=== PATIENT | female | born 1995 | race American Indian/Alaskan Native ===

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

== ENCOUNTER 2017-03-17 18:32 | Emergency (ER) | payer MEDICAID ==
[2017-03-17 18:32] VITALS: BMI 28.8
[2017-03-17 18:47] VITALS: TEMP 98.3; O2SAT 100
--- NOTE | 2017-03-17 20:38 | ED PDOC ---
Arrival/HPI <Jj Pathak - Last Filed: 03/17/17 22:03> - General Historian: Patient, EMS <Gerhard Jeffrey - Last Filed: 03/19/17 09:41> - General Chief Complaint: Respiratory Distress Time Seen by Provider: 03/17/17 19:16 - History of Present Illness Narrative History of Present Illness (Text): 03/17/17 20:36 21 year old female, pmh including asthma, complaining of chest pain and tightness started yesterday mornin. Pt. stated that she has anterior chest pain , mild coughing with difficulty getting the air out, no fever or chills, non- radiating, no night sweat, no dizziness, no numbness or tingling, no other medical or psychological complaints. (Gerhard Jeffrey) Past Medical History - Provider Review Nursing Documentation Reviewed: Yes - Cardiac Hx Cardiac Disorders: No - Pulmonary Hx Respiratory Disorders: Yes Hx Asthma: Yes - Neurological Hx Neurological Disorder: No - HEENT Hx HEENT Disorder: No - Renal Hx Renal Disorder: No - Endocrine/Metabolic Hx Endocrine Disorders: No - Hematological/Oncological Hx Blood Disorders: No - Integumentary Hx Dermatological Disorder: No - Musculoskeletal/Rheumatological Hx Musculoskeletal Disorders: Yes Hx Falls: Yes - Gastrointestinal Hx Gastrointestinal Disorders: No - Genitourinary/Gynecological Hx Genitourinary Disorders: Yes Other/Comment: OVARIAN CYSTS - Psychiatric Hx Psychophysiologic Disorder: No Hx Substance Use: No <Gerhard Jeffrey - Last Filed: 03/19/17 09:41> Family/Social History - Physician Review Nursing Documentation Reviewed: Yes Family/Social History: Unknown Family HX Smoking Status: Never Smoked Hx Alcohol Use: No Hx Substance Use: No <Gerhard Jeffrey - Last Filed: 03/19/17 09:41> Allergies/Home Meds <Jj Pathak - Last Filed: 03/17/17 22:03> <Gerhard Jeffrey - Last Filed: 03/19/17 09:41> Allergies/Adverse Reactions: Allergies shrimp Allergy (Verified 03/17/17 18:41) ANAPHYLAXIS Home Medications: Home Meds Medication Instructions Recorded Confirmed Albuterol HFA [Ventolin HFA 90 2 puff NEB Q4 PRN 03/17/17 03/17/17 mcg/actuation (8 g)] Review of Systems - Review of Systems Constitutional: absent: Fatigue, Fevers Eyes: absent: Vision Changes ENT: absent: Hearing Changes Respiratory: absent: SOB, Cough Cardiovascular: Chest Pain Gastrointestinal: absent: Abdominal Pain, Diarrhea, Nausea, Vomiting Skin: absent: Rash, Pruritis Neurological: absent: Headache, Dizziness <Gerhard Jeffrey - Last Filed: 03/19/17 09:41> Physical Exam Vital Signs Reviewed: Yes Temperature: Afebrile Blood Pressure: Normal Pulse: Regular Respiratory Rate: Normal Appearance: Positive for: Well-Appearing, Non-Toxic, Comfortable Pain Distress: Mild Mental Status: Positive for: Alert and Oriented X 3 - Systems Exam Head: Present: Atraumatic, Normocephalic Pupils: Present: PERRL Extroacular Muscles: Present: EOMI Conjunctiva: Present: Normal Mouth: Present: Moist Mucous Membranes Neck: Present: Normal Range of Motion Respiratory/Chest: Present: Clear to Auscultation, Good Air Exchange. No: Respiratory Distress, Accessory Muscle Use, Wheezes, Decreased Breath Sounds, Rales, Retracting, Rhonchi, Tachypneic, Tender to Palpation Cardiovascular: Present: Regular Rate and Rhythm, Normal S1, S2, Other (no pedal edema). No: Murmurs Abdomen: Present: Normal Bowel Sounds. No: Tenderness, Distention, Peritoneal Signs Back: Present: Normal Inspection Upper Extremity: Present: Normal Inspection. No: Cyanosis, Edema Lower Extremity: Present: Normal Inspection. No: Edema Neurological: Present: GCS=15, CN II-XII Intact, Speech Normal Skin: Present: Warm, Dry, Normal Color. No: Rashes Psychiatric: Present: Alert, Oriented x 3, Normal Insight, Normal Concentration <Gerhard Jeffrey - Last Filed: 03/19/17 09:41> Vital Signs Temp Pulse Resp BP Pulse Ox 03/17/17 23:12 93 H 18 112/75 100 03/17/17 21:00 17 03/17/17 18:42 98.3 F 89 17 104/73 100 Medical Decision Making <Jj Pathak - Last Filed: 03/17/17 22:03> - Lab Interpretations I have reviewed the lab results: Yes Interpretation: No clinic. lab abnormalty - RAD Interpretation Furnace Operator And Tender: Radiologist - EKG Interpretation Type: 12 lead EKG <Gerhard Jeffrey - Last Filed: 03/19/17 09:41> ED Course and Treatment: 03/17/17 20:38 -labs -ekg -cxr -toradol IM/pepcid -observe and reassess 03/17/17 22:40 -Urine hcg negative -EKG: NSR @ 70 BPM, no ST elevation or depression, no T wave inversion. -Chest xray: no active disease -Labs are non-significant -Cardiac troponin negative -D Dimer negative -Pt. stated that she feels asthma exacerbation cough which the bilateral lung is clear to auscultate, dunoeb and prednisone ordered. -Pt. request to be excuse from the work today as well. -Discharge home with prednisone, albuterol, motrin, stay hydrated, follow up with your own pmd and ripening room operator within 2 days, return to the ER for any new or worsening signs or symptoms. (Gerhard Jeffrey) - Lab Interpretations Lab Results: 03/17/17 21:00 03/17/17 21:00 Lab Results 03/17/17 23:10: Urine Color Yellow, Urine Appearance Sl cloudy, Urine pH 6.0, Ur Specific [place] >= 1.030, Urine Protein Trace H, Urine Glucose (UA) Negative , Urine Ketones Trace H, Urine Blood Negative, Urine Nitrate Negative, Urine Bilirubin Negative, Urine Urobilinogen 0.2, Ur Leukocyte Esterase Small H, Urine RBC 0 - 2, Urine WBC 5 - 10, Ur Epithelial Cells 3 - 4, Urine Bacteria Mod 03/17/17 21:00: WBC 5.5, RBC 4.71, Hgb 12.6, Hct 39.4, MCV 83.7, MCH 26.8, MCHC 32.0, RDW 13.8, Plt Count 293, MPV 10.0, Gran % 61.0, Lymph % (Auto) 32.8, Mason % (Auto) 5.1, Eos % (Auto) 0.9 L, Baso % (Auto) 0.2, Gran # 3.35, Lymph # 1.8, Mason # 0.3, Eos # 0.1, Baso # 0.01 03/17/17 21:00: Sodium 144, Potassium 3.7, Chloride 107, Carbon Dioxide 25, Anion Gap 16, BUN 15, Creatinine 0.8, Est GFR ( Amer) > 60, Est GFR (Non- Af Amer) > 60, Random Glucose 106, Calcium 9.4, Total Bilirubin 0.3, AST 27, ALT 41, Alkaline Phosphatase 57, Lactate Dehydrogenase 465, Total Creatine Kinase 99, Troponin I < 0.01, Total Protein 7.5, Albumin 4.2, Globulin 3.3, Albumin/Globulin Ratio 1.3 03/17/17 21:00: D-Dimer, Quantitative 0.21 - RAD Interpretation Radiology Orders: 03/17/17 20:29 CHEST PORTABLE [RAD] Stat no active disease (Gerhard Jeffrey) - EKG Interpretation EKG Interpretation (Text): 03/17/17 22:07 NSR @ 70 BPM, no ST elevation or depression, no T wave inversion. (Gerhard Jeffrey) - Medication Orders Current Medication Orders: Discontinued Medications Albuterol/Ipratropium (Duoneb 3 Mg/0.5 Mg (3 Ml) Ud) 3 ml IH STAT STA Stop: 03/17/17 22:40 Last Admin: 03/17/17 22:55 Dose: 3 ml Prednisone (Prednisone Tab) 40 mg PO STAT STA Stop: 03/17/17 22:41 Last Admin: 03/17/17 22:55 Dose: 40 mg - PA / NATIONAL SALES CONSULTANT / Resident Statement TALIA has reviewed & agrees with the documentation as recorded. <Jj Pathak - Last Filed: 03/17/17 22:03> - PA / NATIONAL SALES CONSULTANT / Resident Statement TALIA has reviewed & agrees with the documentation as recorded. TALIA has examined the patient and agrees with the treatment plan. <Gerhard Jeffrey - Last Filed: 03/19/17 09:41> Disposition/Present on Arrival <Jj Pathak - Last Filed: 03/17/17 22:03> - Present on Arrival Any Indicators Present on Arrival: No History of DVT/PE: No History of Uncontrolled Diabetes: No Urinary Catheter: No History of Decub. Ulcer: No History Surgical Site Infection Following: None - Disposition Have Diagnosis and Disposition been Completed?: Yes Disposition Time: 22:43 Patient Plan: Discharge <Gerhard Jeffrey - Last Filed: 03/19/17 09:41> - Disposition Diagnosis: Chronic asthma with status asthmaticus Disposition: HOME/ ROUTINE Condition: GOOD Additional Instructions: -Discharge home with prednisone, albuterol, motrin, stay hydrated, follow up with your own pmd and ripening room operator within 2 days, return to the ER for any new or worsening signs or symptoms. Prescriptions: Albuterol HFA [Ventolin HFA 90 mcg/actuation (8 g)] 2 puff IH [id number] PRN #1 unit PRN Reason: Other Ibuprofen [Motrin Tab] 600 mg PO QID PRN #24 tab PRN Reason: Other predniSONE [Prednisone] 2 tab PO DAILY #8 tab Referrals: Don Flaherty MD [Primary Care Provider] - Follow up with primary Forms: [facility] (German), WORK NOTE
[2017-03-17 21:28] LABS: ALB/GLOB RATIO 1.3 (1.1-1.8); ALKALINE PHOSPHATASE 57 U/L (38-126); ALT/SGPT 41 U/L (7-56); AST/SGOT 27 U/L (14-36); BASO # 0.01 K/mm3 (0.0-2.0); BASO % 0.2 % (0.0-3.0); BILIRUBIN,TOTAL 0.3 mg/dL (0.2-1.3); BLOOD UREA NITROGEN 15 mg/dL (7-21); CALCIUM 9.4 mg/dL (8.4-10.5); CARBON DIOXIDE 25 mmol/L (21-33); CHLORIDE 107 mmol/L (98-107); EOS # 0.1 (0.0-0.7); EOS % 0.9 % (1.5-5.0); GFR AFRICAN-AMERICAN > 60; GLUCOSE,RANDOM 106 mg/dL (70-110); GRAN # 3.35 (1.4-6.5); HEMATOCRIT 39.4 % (36.0-48.0); LYMPH # 1.8 (1.2-3.4); LYMPH % 32.8 % (22.0-35.0); MEAN CELL VOLUME 83.7 fl (80.0-105.0); MEAN CORPUSCULAR HEMOGLOBIN 26.8 pg (25.0-35.0); MONO # 0.3 (0.1-0.6); MONO % 5.1 % (1.0-6.0); POTASSIUM 3.7 mmol/L (3.6-5.0); RED CELL DISTRIBUTION WIDTH 13.8 % (11.5-14.5); SODIUM 144 mmol/L (132-148); TOTAL PROTEIN 7.5 g/dL (5.8-8.3); WHITE BLOOD COUNT 5.5 10^3/ul (4.5-11.0)
[2017-03-17 21:49] LABS: TROPONIN I < 0.01 ng/mL
[2017-03-17] MEDS ORDERED: Albuterol-Ipratrop 3 mg / 0.5 (3 ml) UD IH STA (22:39)
[2017-03-17 23:13] VITALS: BP 112/75; PULSE 93; RESP 18
[2017-03-17 23:18] LABS: URINE BILIRUBIN NEGATIVE (NEGATIVE); URINE BLOOD NEGATIVE (NEGATIVE); URINE GLUCOSE (UA) NEGATIVE (NEGATIVE); URINE KETONE TRACE mg/dL (NEGATIVE); URINE LEUKOCYTE ESTERASE SMALL Leu/uL (NEGATIVE); URINE PROTEIN TRACE mg/dL (<30 mg/dL); URINE UROBILINOGEN 0.2 E.U./dL (<1 E.U./dL)
[2017-03-17 23:20] LABS: URINE COLOR YELLOW (YELLOW)
[2017-03-17 23:21] LABS: URINE APPEARANCE SL CLOUDY (CLEAR)
[2017-03-17 23:28] LABS: URINE RBC 0 - 2 /hpf (0-2)
[2017-03-17 23:29] LABS: URINE BACTERIA MOD (NEG)
--- NOTE | 2017-03-18 10:18 | RAD ---
HISTORY: medical clearance . Technique: Single view portable semi erect @ 22:00 COMPARISON: 08/08/2016 FINDINGS: LUNGS: No active pulmonary disease. PLEURA: No significant pleural effusion identified, no pneumothorax apparent. CARDIOVASCULAR: Normal. OSSEOUS STRUCTURES: No significant abnormalities. VISUALIZED UPPER ABDOMEN: Normal. OTHER FINDINGS: None. IMPRESSION: No active disease. No significant interval change compared to the prior examination(s). Please note: No preliminary report/ innterpretation of this examination provided by emergency department personnel.
--- NOTE | 2017-03-18 23:06 | CARD ---
APPROVED REPORT EKG Measurement Heart [id number] [id number] [id number] <Conclusion> Normal sinus rhythm Normal ECG
== END 2017-03-17 23:11 | disposition home or self-care (01) ==
LOC: ED 18:32
DX: J45.902 Unspecified asthma with status asthmaticus (principal)

== ENCOUNTER 2017-05-02 17:54 | Emergency (ER) | payer MEDICAID ==
[2017-05-02 17:59] VITALS: BMI 29.7
[2017-05-02 18:00] VITALS: TEMP 97.8
[2017-05-02] MEDS ORDERED: Albuterol-Ipratrop 3 mg / 0.5 (3 ml) UD IH STA (18:11)
[2017-05-02] MEDS ORDERED: Promethazine/Cod 6.25mg-10mg/5ml Syr UD PO STA (18:12)
--- NOTE | 2017-05-02 18:14 | ED PDOC ---
Arrival/HPI - General Chief Complaint: Shortness Of Breath Time Seen by Provider: 05/02/17 17:59 Historian: Patient - History of Present Illness Narrative History of Present Illness (Text): 05/02/17 18:13 This 21 yo female with pmh asthma, presents to this ED c/o cough x 2 days. Patient notes a mild SOB, and fever. Patient admits similar symptoms in the past and treated with Prednisone. Patient denies cp, hemoptysis, palpitation, abdominal pain, rash, leg swelling, calf pain, recent trauma, recent travel, recent surgery, BCP use, or abnormal gait. PERC negative for PE Time/Duration: Other (see hpi) Context: Home Past Medical History - Provider Review Nursing Documentation Reviewed: Yes - Cardiac Hx Cardiac Disorders: No - Pulmonary Hx Respiratory Disorders: Yes Hx Asthma: Yes - Neurological Hx Neurological Disorder: No - HEENT Hx HEENT Disorder: No - Renal Hx Renal Disorder: No - Endocrine/Metabolic Hx Endocrine Disorders: No - Hematological/Oncological Hx Blood Disorders: No - Integumentary Hx Dermatological Disorder: No - Musculoskeletal/Rheumatological Hx Musculoskeletal Disorders: Yes Hx Falls: Yes - Gastrointestinal Hx Gastrointestinal Disorders: No - Genitourinary/Gynecological Hx Genitourinary Disorders: Yes Other/Comment: OVARIAN CYSTS - Psychiatric Hx Psychophysiologic Disorder: No Hx Substance Use: No Family/Social History - Physician Review Nursing Documentation Reviewed: Yes Family/Social History: Other (noncontributory) Smoking Status: Never Smoked Hx Alcohol Use: No Hx Substance Use: No Allergies/Home Meds Allergies/Adverse Reactions: Allergies shrimp Allergy (Verified 05/02/17 17:59) ANAPHYLAXIS Review of Systems - Review of Systems Constitutional: Normal. absent: Fatigue, Weight Change, Fevers Eyes: Normal ENT: Normal Respiratory: SOB, Cough. absent: Sputum, Wheezing Cardiovascular: Normal Gastrointestinal: Normal Genitourinary Female: Normal Musculoskeletal: Normal Skin: Normal Neurological: Normal Endocrine: Normal Hemo/Lymphatic: Normal Psychiatric: Normal Physical Exam Vital Signs Temp Pulse Resp BP Pulse Ox 05/02/17 20:34 85 18 102/60 100 05/02/17 19:41 77 19 98/53 L 100 05/02/17 18:00 97.8 F 98 H 18 130/68 99 Temperature: Afebrile Blood Pressure: Normal Pulse: Regular Respiratory Rate: Normal Appearance: Positive for: Well-Appearing, Non-Toxic, Comfortable Pain Distress: None Mental Status: Positive for: Alert and Oriented X 3 - Systems Exam Head: Present: Atraumatic, Normocephalic Pupils: Present: PERRL Extroacular Muscles: Present: EOMI Conjunctiva: Present: Normal Mouth: Present: Moist Mucous Membranes Neck: Present: Normal Range of Motion Respiratory/Chest: Present: Good Air Exchange, Wheezes (mild, generalized). No : Respiratory Distress, Accessory Muscle Use, Decreased Breath Sounds, Rales, Retracting, Rhonchi Cardiovascular: Present: Regular Rate and Rhythm, Normal S1, S2. No: Murmurs Abdomen: Present: Normal Bowel Sounds. No: Tenderness, Distention, Peritoneal Signs Back: Present: Normal Inspection Upper Extremity: Present: Normal Inspection. No: Cyanosis, Edema Lower Extremity: Present: Normal Inspection. No: Edema Neurological: Present: GCS=15, CN II-XII Intact, Speech Normal Skin: Present: Warm, Dry, Normal Color. No: Rashes Psychiatric: Present: Alert, Oriented x 3, Normal Insight, Normal Concentration Medical Decision Making ED Course and Treatment: 05/02/17 20:20 Re-evaluation. Patient feels better. Discussed results and plan with patient who expresses understanding. All questions answered and there is agreement with the plan to discharge home with instructions. Patient stable for discharge. Return if symptoms persist or worsen. Patient was recommended to take Prednisone with exacerbation asthma. She stated she has taken this medication in the past, and also aware of risk of taking Prednisone. I reviewed risk which includes AVN, osteoporosis, DM, glaucoma, renal failure, liver disease, osteopenia. She understood risk, and she still wants Prednisone Rx. Re-evaluation Time: 20:21 Reassessment Condition: Re-examined, Improved - RAD Interpretation Narrative RAD Interpretations (Text): 05/02/17 20:21 CXR: NAD Radiology Orders: 05/02/17 18:13 CHEST TWO VIEWS (PA/LAT) [RAD] Stat - Medication Orders Current Medication Orders: Discontinued Medications Albuterol/Ipratropium (Duoneb 3 Mg/0.5 Mg (3 Ml) Ud) 3 ml IH STAT STA Stop: 05/02/17 18:12 Last Admin: 05/02/17 18:36 Dose: 3 ml Ketorolac Tromethamine (Toradol) 30 mg IM STAT STA Stop: 05/02/17 19:59 Last Admin: 05/02/17 20:14 Dose: 30 mg MAR Pain Assessment Document 05/02/17 20:14 IT (Rec: 05/02/17 20:14 IT [id number]) Pain Reassessment Is this a pain reassessment? No Sleep Is patient sleeping during reassessment? No Presence of Pain Presence of Pain Yes Pain Scale Used Pain Scale Used Numeric Location Pain Location Body Site Chest IM Administration Charges Document 05/02/17 20:14 IT (Rec: 05/02/17 20:14 IT [id number]) Charges for Administration # of IM Administrations 1 Prednisone (Prednisone Tab) 60 mg PO STAT ONE Stop: 05/02/17 18:13 Last Admin: 05/02/17 18:36 Dose: 60 mg Promethazine HCl/Codeine (Phenergan/Codeine Oral Syrup) 5 ml PO STAT STA Stop: 05/02/17 18:13 Last Admin: 05/02/17 18:36 Dose: 5 ml Disposition/Present on Arrival - Present on Arrival Any Indicators Present on Arrival: No History of DVT/PE: No History of Uncontrolled Diabetes: No Urinary Catheter: No History of Decub. Ulcer: No History Surgical Site Infection Following: None - Disposition Have Diagnosis and Disposition been Completed?: Yes Diagnosis: Asthma exacerbation Disposition: HOME/ ROUTINE Disposition Time: 20:21 Patient Plan: Discharge Condition: GOOD Discharge Instructions (ExitCare): Asthma (ED) Additional Instructions: Call private doctor for follow up visit in 1-2 days. Take medication as instructed. Return to emergency if symptoms worsen. Prescriptions: Albuterol HFA [Ventolin HFA 90 mcg/actuation (8 g)] 2 puff IH [id number] PRN #60 puff PRN Reason: Wheezing Prednisone [Deltasone] 60 mg PO DAILY #9 tablet Promethazine [Phenergan Syrup] 6.25 mg PO Q4H PRN #120 ml PRN Reason: Cough Referrals: Main Flaherty MD [Primary Care Provider] - Follow up with primary Forms: [employer] [facility] (Mauritanian), WORK NOTE
[2017-05-02 19:41] VITALS: O2SAT 100
[2017-05-02 20:35] VITALS: BP 102/60; PULSE 85; RESP 18
--- NOTE | 2017-05-03 09:03 | RAD ---
HISTORY: cough COMPARISON: 03/17/2017 TECHNIQUE: Chest PA and lateral FINDINGS: LUNGS: No active pulmonary disease. PLEURA: No significant pleural effusion identified. No pneumothorax apparent. CARDIOVASCULAR: Normal. OSSEOUS STRUCTURES: No significant abnormalities. VISUALIZED UPPER ABDOMEN: Normal. OTHER FINDINGS: None. IMPRESSION: No active disease.
--- NOTE | 2017-05-03 09:23 | CARD ---
APPROVED REPORT EKG Measurement Heart [id number] [place] 130P41 [id number] <Conclusion> Normal sinus rhythm Normal ECG
== END 2017-05-02 20:40 | disposition home or self-care (01) ==
LOC: ED 17:54
DX: J45.901 Unspecified asthma with (acute) exacerbation (principal)
CPT/HCPCS: 71020; 81025; 93005; 96372; 99284; J1885

== ENCOUNTER 2017-07-18 05:00 | Emergency (ER) | payer MEDICAID ==
[2017-07-18 05:27] VITALS: BMI 29.9
[2017-07-18 05:28] VITALS: TEMP 97.9
[2017-07-18] MEDS ORDERED: Albuterol 0.083% Inhal Sol (2.5 mg/3 mL) UD INH STA (06:21)
--- NOTE | 2017-07-18 06:27 | ED PDOC ---
Arrival/HPI - General Historian: Patient - History of Present Illness Symptom Onset: Sudden Symptom Course: Unchanged Activities at Onset: Rest Context: Home <Zurdo Dodge - Last Filed: 07/18/17 06:25> <Adam Horta - Last Filed: 07/18/17 07:57> - General Chief Complaint: Medical Clearance Time Seen by Provider: 07/18/17 05:15 - History of Present Illness Narrative History of Present Illness (Text): 07/18/17 06:27 A 22 year old female, whose past medical history includes asthma (not on steroid recently), presents to the emergency department complaining of feeling sick for a few days, with cough, cold congestion and fever. Patient reports productive cough of green sputum and tonight blood in sputum, more than other days. Patient denies any other complaints at this time. (Zurdo Dodge) Past Medical History - Provider Review Nursing Documentation Reviewed: Yes - Infectious Disease Hx of Infectious Diseases: None - Cardiac Hx Cardiac Disorders: No - Pulmonary Hx Respiratory Disorders: Yes Hx Asthma: Yes - Neurological Hx Neurological Disorder: No - HEENT Hx HEENT Disorder: No - Renal Hx Renal Disorder: No - Endocrine/Metabolic Hx Endocrine Disorders: No - Hematological/Oncological Hx Blood Disorders: No - Integumentary Hx Dermatological Disorder: No - Musculoskeletal/Rheumatological Hx Musculoskeletal Disorders: Yes Hx Falls: Yes (Syncopal Episode) - Gastrointestinal Hx Gastrointestinal Disorders: No - Genitourinary/Gynecological Hx Genitourinary Disorders: Yes Other/Comment: OVARIAN CYSTS - Psychiatric Hx Psychophysiologic Disorder: No Hx Substance Use: No - Anesthesia Hx Anesthesia: No <Zurdo Dodge - Last Filed: 07/18/17 06:25> Family/Social History - Physician Review Nursing Documentation Reviewed: Yes Family/Social History: No Known Family HX Smoking Status: Never Smoked Hx Alcohol Use: No Hx Substance Use: No <Zurdo Dodge - Last Filed: 07/18/17 06:25> Allergies/Home Meds <Zurdo Dodge - Last Filed: 07/18/17 06:25> <Adam Horta - Last Filed: 07/18/17 07:57> Allergies/Adverse Reactions: Allergies shrimp Allergy (Verified 05/02/17 17:59) ANAPHYLAXIS Review of Systems - Physician Review All systems were reviewed & negative as marked: Yes - Review of Systems Constitutional: Fevers ENT: Other (cold congestion) Respiratory: Cough (productive) <Zurdo Dodge - Last Filed: 07/18/17 06:25> Physical Exam Vital Signs Reviewed: Yes Temperature: Afebrile Blood Pressure: Normal Pulse: Tachycardic Respiratory Rate: Normal Appearance: Positive for: Well-Appearing, Non-Toxic, Comfortable Pain Distress: None Mental Status: Positive for: Alert and Oriented X 3 - Systems Exam Head: Present: Atraumatic, Normocephalic Pupils: Present: PERRL Extroacular Muscles: Present: EOMI Conjunctiva: Present: Normal Mouth: Present: Moist Mucous Membranes Neck: Present: Normal Range of Motion Respiratory/Chest: Present: Wheezes (few exp wheezing back b/l). No: Respiratory Distress, Accessory Muscle Use Cardiovascular: Present: Regular Rate and Rhythm, Normal S1, S2. No: Murmurs Abdomen: Present: Normal Bowel Sounds. No: Tenderness, Distention, Peritoneal Signs Back: Present: Normal Inspection Upper Extremity: Present: Normal Inspection. No: Cyanosis, Edema Lower Extremity: Present: Normal Inspection. No: Edema Neurological: Present: GCS=15, CN II-XII Intact, Speech Normal Skin: Present: Warm, Dry, Normal Color. No: Rashes Psychiatric: Present: Alert, Oriented x 3, Normal Insight, Normal Concentration <Zurdo Dodge - Last Filed: 07/18/17 06:25> Vital Signs Temp Pulse Resp BP Pulse Ox 07/18/17 06:57 97.9 F 76 17 118/87 100 07/18/17 06:19 97.9 F 78 16 136/87 99 07/18/17 05:27 97.9 F 112 H 16 115/85 99 Medical Decision Making - Lab Interpretations I have reviewed the lab results: Yes <Zurdo Dodge - Last Filed: 07/18/17 06:25> - RAD Interpretation Sheet Metal Roofer: ED Physician <Adam Horta - Last Filed: 07/18/17 07:57> ED Course and Treatment: 07/18/17 06:25 Impression: A 22 year old female with cough, cold congestion, fever. Plan: -- chest xray -- labs -- Urinalysis -- Albuterol, Solumedrol, Sudafed -- Reassess and disposition Prior Visits: Notes and results from previous visits were reviewed. Patient was last seen in the emergency department on 06/17/17 for evaluation of shortness of breath. Progress Notes: (Zurdo Dodge) 07/18/17 07:15 Turned over to me by waiting for blood work and chest x-ray. Patient complains of a several day history of a cough congestion and URI fever to 102. Her flu was negative. HCG is negative. She appears comfortable and in no distress. Lungs are clear. (Adam Horta) - Lab Interpretations Lab Results: 07/18/17 06:45 07/18/17 06:45 Lab Results 07/18/17 07:00: PT 13.3 H, INR 1.15 H, APTT 30.7 07/18/17 06:45: D-Dimer, Quantitative < 200 07/18/17 06:45: Sodium 143, Chloride 105, Potassium 3.9, Carbon Dioxide 25, Anion Gap 17, BUN 11, Creatinine 0.8, Est GFR ( Amer) > 60, Est GFR (Non- Af Amer) > 60, Random Glucose 84, Calcium 9.8, Total Bilirubin 0.4, AST 30, ALT 30, Alkaline Phosphatase 62, Total Protein 7.8, Albumin 4.1, Globulin 3.7, Albumin/Globulin Ratio 1.1 07/18/17 06:45: pO2 33, VBG pH 7.32, VBG pCO2 50.0, VBG HCO3 25.8, VBG Total CO2 27.3, VBG O2 Sat (Calc) 69.4 H, VBG Base Excess -0.9 L, VBG Potassium 3.8, Sodium 138.0, Chloride 106.0, Glucose 86, Lactate 0.8, FiO2 21.0, Venous Blood Potassium 3.8 07/18/17 06:45: WBC 5.2 D, RBC 4.87, Hgb 13.1, Hct 41.3, MCV 84.8, MCH 26.9, MCHC 31.7, RDW 13.6, Plt Count 275, MPV 10.2, Gran % 56.7, Lymph % (Auto) 34.2, [place] % (Auto) 7.8 H, Eos % (Auto) 1.1 L, Baso % (Auto) 0.2, Gran # 2.97, Lymph # (Auto) 1.8, [place] # (Auto) 0.4, Eos # (Auto) 0.1, Baso # (Auto) 0.01 07/18/17 06:10: Urine Color Yellow, Urine Appearance Turbid, Urine pH 6.0, Ur Specific [place] 1.025, Urine Protein Negative, Urine Glucose (UA) Negative, Urine Ketones Trace H, Urine Blood Negative, Urine Nitrate Negative, Urine Bilirubin Negative, Urine Urobilinogen 0.2, Ur Leukocyte Esterase Moderate H, Urine RBC Negative, Urine WBC 25 - 30, Ur Epithelial Cells Many, Urine Bacteria Many 07/18/17 05:54: Influenza Typ A,B (EIA) Negative for flu a/b - RAD Interpretation Radiology Orders: 07/18/17 06:21 CXR [CHEST TWO VIEWS (PA/LAT)] [RAD] Stat Chest x-ray two-view shows no infiltrate effusion cardiomegaly or pneumothorax ( Adam Horta) - Medication Orders Current Medication Orders: Discontinued Medications Albuterol Sulfate (Albuterol 0.083% Inhal Shira (2.5 Mg/3 Ml) Ud) 2.5 mg INH STAT STA Stop: 07/18/17 06:22 Last Admin: 07/18/17 06:53 Dose: 2.5 mg Methylprednisolone (Solu-Medrol) 125 mg IVP STAT STA Stop: 07/18/17 06:22 Last Admin: 07/18/17 06:40 Dose: 125 mg IVP Administration Document 07/18/17 06:40 OCS (Rec: 07/18/17 06:40 OCS [id number]) Charges for Administration # of IVP Administrations 1 Pseudoephedrine HCl (Sudafed Tab) 30 mg PO ONCE ONE Stop: 07/18/17 06:22 Last Admin: 07/18/17 06:40 Dose: 30 mg - Scribe Statement The provider has reviewed the documentation as recorded by the Scribe <Zurdo Dodge - Last Filed: 07/18/17 06:25> <Adam Horta - Last Filed: 07/18/17 07:57> - Scribe Statement Michael Ray Provider Scribe Attestation: All medical record entries made by the Scribe were at my direction and personally dictated by me. I have reviewed the chart and agree that the record accurately reflects my personal performance of the history, physical exam, medical decision making, and the department course for this patient. I have also personally directed, reviewed, and agree with the discharge instructions and disposition. (Zurdo Dodge) Disposition/Present on Arrival - Present on Arrival History of DVT/PE: No History of Uncontrolled Diabetes: No Urinary Catheter: No History of Decub. Ulcer: No History Surgical Site Infection Following: None <Zurdo Dodge - Last Filed: 07/18/17 06:25> - Present on Arrival Any Indicators Present on Arrival: No History of DVT/PE: No History of Uncontrolled Diabetes: No Urinary Catheter: No History of Decub. Ulcer: No - Disposition Have Diagnosis and Disposition been Completed?: Yes Disposition Time: 07:56 Patient Plan: Discharge <Adam Horta - Last Filed: 07/18/17 07:57> - Disposition Diagnosis: Bronchitis Disposition: HOME/ ROUTINE Condition: GOOD Discharge Instructions (ExitCare): Acute Bronchitis (ED) Additional Instructions: Symptomatic treatment. Tylenol or Advil as directed on bottle as needed. Follow- up with PMD. Follow up in ER as needed. Prescriptions: Amoxicillin [Amoxil 250 mg Cap] 250 mg PO TID #21 cap Benzonatate [Tessalon Perles] 100 mg PO Q8 #30 sgl Albuterol HFA [Ventolin HFA 90 mcg/actuation (8 g)] 2 puff IH [id number] #1 puff Referrals: Main Flaherty MD [Primary Care Provider] - Follow up with primary Forms: [facility] (Georgian), SCHOOL NOTE, WORK NOTE
[2017-07-18 06:58] LABS: VENOUS BLOOD GAS BASE EXCESS -0.9 mmol/L (0.0-2.0); VENOUS BLOOD GAS PO2 33 mm/Hg (30-55); VENOUS BLOOD PH 7.32 (7.32-7.43)
[2017-07-18 07:07] LABS: BASO # 0.01 K/mm3 (0.0-2.0); BASO % 0.2 % (0.0-3.0); EOS # 0.1 (0.0-0.7); EOS % 1.1 % (1.5-5.0); GRAN # 2.97 (1.4-6.5); GRAN % 56.7 % (50.0-68.0); HEMOGLOBIN 13.1 g/dL (12.0-16.0); LYMPH # 1.8 (1.2-3.4); LYMPH % 34.2 % (22.0-35.0); MEAN CELL VOLUME 84.8 fl (80.0-105.0); MEAN CORPUSCULAR HEMOGLOBIN 26.9 pg (25.0-35.0); MEAN CORPUSCULAR HGB CONC 31.7 g/dl (31.0-37.0); MEAN PLATELET VOLUME 10.2 fl (7.0-11.0); MONO # 0.4 (0.1-0.6); MONO % 7.8 % (1.0-6.0); RBC 4.87 10^6/uL (3.5-6.1); RED CELL DISTRIBUTION WIDTH 13.6 % (11.5-14.5)
[2017-07-18 07:08] LABS: WHITE BLOOD COUNT 5.2 10^3/ul (4.5-11.0)
[2017-07-18 07:15] LABS: URINE BILIRUBIN NEGATIVE (NEGATIVE); URINE BLOOD NEGATIVE (NEGATIVE); URINE GLUCOSE (UA) NEGATIVE (NEGATIVE); URINE LEUKOCYTE ESTERASE MODERATE Leu/uL (NEGATIVE); URINE NITRATE NEGATIVE (NEGATIVE); URINE PROTEIN NEGATIVE mg/dL (<30 mg/dL); URINE UROBILINOGEN 0.2 E.U./dL (<1 E.U./dL)
[2017-07-18 07:18] LABS: ALB/GLOB RATIO 1.1 (1.1-1.8); ALBUMIN 4.1 g/dL (3.0-4.8); ALT/SGPT 30 U/L (7-56); AST/SGOT 30 U/L (14-36); BLOOD UREA NITROGEN 11 mg/dL (7-21); CALCIUM 9.8 mg/dL (8.4-10.5); GFR AFRICAN-AMERICAN > 60; GFR NON-AFRICAN AMERICAN > 60
[2017-07-18 07:29] LABS: URINE APPEARANCE TURBID (CLEAR); URINE COLOR YELLOW (YELLOW)
[2017-07-18 07:44] LABS: URINE BACTERIA MANY (NEG); URINE EPITHELIAL CELLS MANY /hpf (0-5); URINE RBC NEGATIVE /hpf (0-2); URINE WBC 25 - 30 /hpf (0-6)
[2017-07-18 07:54] LABS: INR 1.15 (0.93-1.08); PARTIAL THROMBOPLASTIN TIME 30.7 Seconds (25.1-36.5); PROTHROMBIN TIME 13.3 SECONDS (9.4-12.5)
[2017-07-18 08:10] VITALS: BP 125/82; PULSE 83; RESP 12; O2SAT 99
--- NOTE | 2017-07-18 08:25 | RAD ---
HISTORY: cough, asthma COMPARISON: 05/02/2017 TECHNIQUE: Chest PA and lateral FINDINGS: LUNGS: No active pulmonary disease. PLEURA: No significant pleural effusion identified. No pneumothorax apparent. CARDIOVASCULAR: Normal. OSSEOUS STRUCTURES: No significant abnormalities. VISUALIZED UPPER ABDOMEN: Normal. OTHER FINDINGS: None. IMPRESSION: No active disease.
== END 2017-07-18 08:05 | disposition home or self-care (01) ==
LOC: ED 05:00
DX: J40 Bronchitis, not specified as acute or chronic (principal)
CPT/HCPCS: 71046; 80053; 81001; 81025; 82803; 85025; 85378; 85610; 85730; 87040; 87086; 87804; 96374; 99284; J2930

== ENCOUNTER 2017-10-23 01:49 | Emergency (ER) | payer SELFPAY ==
[2017-10-23 02:02] VITALS: BMI 34.3
[2017-10-23 02:06] VITALS: RESP 16
[2017-10-23] MEDS ORDERED: Sodium Chloride 0.9% 1,000 ML IV STA (02:38)
[2017-10-23] MEDS ORDERED: Albuterol-Ipratrop 3 mg / 0.5 (3 ml) UD IH STA (02:46)
--- NOTE | 2017-10-23 02:48 | ED PDOC ---
Arrival/HPI - General Chief Complaint: Respiratory Distress Time Seen by Provider: 10/23/17 01:57 Historian: Patient - History of Present Illness Narrative History of Present Illness (Text): you were treated in the ED today for hx of ovarian cysts and having pelvic discomfort and secondarily having hx of asthma with flare-up as out of breathing treatments but otherwise without any nausea/vomiting/headache/ dizziness/difficulty breathing/chest pain/numbness/tingling/loss of limb function/pain with urination/vaginal bleeding or discharge/travel/prior blood clots/ control/cancer history. Refused sexual disease testing or treatment at this time. 10/23/17 02:44 10/23/17 02:46 10/23/17 02:46 Time/Duration: 24 hours Symptom Onset: Gradual Symptom Course: Intermittent Quality: Aching Severity Level: 1 Activities at Onset: Rest Context: Sitting Past Medical History - Provider Review Nursing Documentation Reviewed: Yes - Travel History Have you recently traveled outside [place] w/in the past 3 mons?: No - Infectious Disease Hx of Infectious Diseases: None - Cardiac Hx Cardiac Disorders: No - Pulmonary Hx Respiratory Disorders: Yes Hx Asthma: Yes - Neurological Hx Neurological Disorder: No - HEENT Hx HEENT Disorder: No - Renal Hx Renal Disorder: No - Endocrine/Metabolic Hx Endocrine Disorders: No - Hematological/Oncological Hx Blood Disorders: No - Integumentary Hx Dermatological Disorder: No - Musculoskeletal/Rheumatological Hx Musculoskeletal Disorders: Yes Hx Falls: Yes (Syncopal Episode) - Gastrointestinal Hx Gastrointestinal Disorders: No - Genitourinary/Gynecological Hx Genitourinary Disorders: Yes Other/Comment: OVARIAN CYSTS - Psychiatric Hx Psychophysiologic Disorder: No Hx Substance Use: No - Anesthesia Hx Anesthesia: No Family/Social History - Physician Review Nursing Documentation Reviewed: Yes Family/Social History: No Known Family HX Smoking Status: Never Smoked Hx Alcohol Use: No Hx Substance Use: No Allergies/Home Meds Allergies/Adverse Reactions: Allergies shrimp Allergy (Verified 10/23/17 02:03) ANAPHYLAXIS Review of Systems - Review of Systems Systems not reviewed;Unavailable: Acuity of Condition Constitutional: Normal Eyes: Normal ENT: Normal Respiratory: SOB Cardiovascular: Normal Gastrointestinal: Normal Genitourinary Female: Other (pelvic pain) Musculoskeletal: Normal Skin: Normal Neurological: Normal Endocrine: Normal Hemo/Lymphatic: Normal Psychiatric: Normal Physical Exam Vital Signs Reviewed: Yes Vital Signs Temp Pulse Resp BP Pulse Ox 10/23/17 02:03 98.5 F 69 16 134/84 100 Temperature: Afebrile Blood Pressure: Hypertensive Pulse: Regular Respiratory Rate: Normal Appearance: Positive for: Well-Appearing, Non-Toxic, Comfortable Pain Distress: None Mental Status: Positive for: Alert and Oriented X 3 - Systems Exam Head: Present: Atraumatic, Normocephalic Pupils: Present: PERRL Extroacular Muscles: Present: EOMI Conjunctiva: Present: Normal Ears: Present: Normal Mouth: Present: Moist Mucous Membranes Pharnyx: Present: Normal Nose (Internal): Present: Normal Inspection, Septal Hematoma Respiratory/Chest: Present: Clear to Auscultation, Good Air Exchange Cardiovascular: Present: Regular Rate and Rhythm Abdomen: No: Tenderness, Distention, Normal Bowel Sounds, Peritoneal Signs, Rebound, Guarding, McBurney's Point Tender, Rovsing's Sign Present, Hernias, Feeding Tubes, Ostomy Tubes, Mass/Organomegaly, Scars, Other Back: Present: Normal Inspection Upper Extremity: Present: Normal Inspection Lower Extremity: Present: Normal Inspection Neurological: Present: GCS=15, CN II-XII Intact, Speech Normal, Motor Func Grossly Intact Skin: Present: Warm, Normal Color Psychiatric: Present: Alert, Oriented x 3, Normal Insight, Normal Concentration Medical Decision Making ED Course and Treatment: you were treated in the ED today for hx of ovarian cysts and having pelvic discomfort and secondarily having hx of asthma with flare-up as out of breathing treatments but otherwise without any nausea/vomiting/headache/ dizziness/difficulty breathing/chest pain/numbness/tingling/loss of limb function/pain with urination/vaginal bleeding or discharge/travel/prior blood clots/ control/cancer history. Refused sexual disease testing or treatment at this time. You were otherwise breathing easily, talking easily, good strength /sensation, walking easily, clear lungs, no abdomen tenderness, you refused pelvic exam and cautioned for complications but you stated will followup gynecology/primary care clinic 1-2 days, no fever temp 98.5, stable heart rate 69, stable breathing rate 16, excellent oxygen level 100% room air, elevated blood pressure 134/84 which we recommend repeat in 2-3 days primary care office to determine further treatment, you have blood tests no infection count 4, stable blood level hemoglobin 11/platelets 308, stable chemistry, lipase negative 96, urine test mild sign of infection, urine test negative, radiology pelvic ultrasound both ovaries normal flow/right ovary cyst 1.9x2.1x1.2cm/no significant free fluid, toradol, duoneb, prednisone, saline, observation done in the ED with improvement, refused chest radiology imaging, counselled to monitor symptoms and thus discharged home. 1. Recommend prednisone as directed for asthma prevention. 2. Recommend albuterol inhaler as directed for breathing relief. 3. recommend macrobid as directed for urinary infection control. 4. Recommend follow-up primary care 2-3 days to review symptoms, referral to pulmonary clinic and gynecology clinic to review your symptoms/review ultrasound findings of 1.9 x 2.1 x 1.2cm to ensure no complications/cancer development, referral to gastroenterology clinic for urobilinogen in urine to ensure further care, referral to urology for ketones in urine to ensure further care. 5. If any worsening pain, fever, chills, nausea , vomiting, difficulty breathing, numbness, loss of limb function, pain with urination or any medical condition then return to the ED. 10/23/17 03:33 Transvaginal US findings: Uterus/cervix: Uterus measures 3.9 x 7.2 x 3.1 cm in size. No myometrial mass. Endometrium: 0.2 cm in thickness. Right ovary: 4.2 x 1.9 x 4.4 cm in size. 1.9 x 2.1 x 1.2 cm anechoic lesion. Normal flow. Left ovary: 3.2 x 2.9 x 2.9 cm in size. No mass. Normal flow. Free fluid: No significant free fluid. Bladder: Unremarkable as visualized. IMPRESSION: 1. RIGHT ovarian cyst 10/23/17 07:11 Reassessment Condition: Re-examined, Improved - Lab Interpretations Lab Results: 10/23/17 02:55 10/23/17 02:55 Lab Results 10/23/17 03:05: Urine Color Yellow, Urine Appearance Sl cloudy, Urine pH 6.0, Ur Specific [place] 1.025, Urine Protein Negative, Urine Glucose (UA) Negative, Urine Ketones Trace H, Urine Blood Negative, Urine Nitrate Negative, Urine Bilirubin Negative, Urine Urobilinogen 1.0 H, Ur Leukocyte Esterase Small H, Urine RBC 0 - 2, Urine WBC 2 - 5, Ur Epithelial Cells 3 - 4, Urine Bacteria Small 10/23/17 02:55: Sodium 145, Potassium 4.3, Chloride 107, Carbon Dioxide 30, Anion Gap 12, BUN 11, Creatinine 0.7, Est GFR ( Amer) > 60, Est GFR (Non- Af Amer) > 60, Random Glucose 86, Calcium 9.0, Magnesium 1.9, Total Bilirubin 0.2, AST 23, ALT 26, Alkaline Phosphatase 50, Total Protein 6.7, Albumin 3.7, Globulin 3.0, Albumin/Globulin Ratio 1.2, Lipase 96 10/23/17 02:55: PT 12.1, INR 1.06, APTT 29.6 10/23/17 02:55: WBC 4.9, RBC 4.39, Hgb 11.6 L, Hct 37.1, MCV 84.5, MCH 26.4, MCHC 31.3, RDW 13.6, Plt Count 308, MPV 9.6, Gran % 44.4 L, Lymph % (Auto) 47.5 H, [place] % (Auto) 6.1 H, Eos % (Auto) 1.8, Baso % (Auto) 0.2, Gran # 2.18, Lymph # (Auto) 2.3, [place] # (Auto) 0.3, Eos # (Auto) 0.1, Baso # (Auto) 0.01 I have reviewed the lab results: Yes - RAD Interpretation Radiology Orders: 10/23/17 02:43 TRANSVAGINAL [US] Stat Greige Mender: Radiologist - Medication Orders Current Medication Orders: Discontinued Medications Albuterol/Ipratropium (Duoneb 3 Mg/0.5 Mg (3 Ml) Ud) 3 ml IH STAT STA Stop: 10/23/17 02:47 Last Admin: 10/23/17 03:05 Dose: 3 ml Sodium Chloride (Sodium Chloride 0.9%) 1,000 mls @ 1,000 mls/hr IV .Q1H STA Stop: 10/23/17 03:37 Last Admin: 10/23/17 03:06 Dose: 1,000 mls/hr eMAR Start Stop Document 10/23/17 03:06 CNR (Rec: 10/23/17 03:06 CNR [id number]) Intravenous Solution Start Date 10/23/17 Start Time 03:06 Ketorolac Tromethamine (Toradol) 30 mg IVP STAT STA Stop: 10/23/17 02:39 Last Admin: 10/23/17 03:05 Dose: 30 mg MAR Pain Assessment Document 10/23/17 03:05 CNR (Rec: 10/23/17 03:06 CNR [id number]) Pain Reassessment Is this a pain reassessment? Yes IVP Administration Document 10/23/17 03:05 CNR (Rec: 10/23/17 03:06 CNR [id number]) Charges for Administration # of IVP Administrations 1 Prednisone (Prednisone Tab) 60 mg PO STAT ONE Stop: 10/23/17 02:47 Last Admin: 10/23/17 03:05 Dose: 60 mg Disposition/Present on Arrival - Present on Arrival Any Indicators Present on Arrival: No History of DVT/PE: No History of Uncontrolled Diabetes: No Urinary Catheter: No History of Decub. Ulcer: No History Surgical Site Infection Following: None - Disposition Have Diagnosis and Disposition been Completed?: Yes Diagnosis: Cyst of ovary, right, UTI (urinary tract infection) Disposition: HOME/ ROUTINE Disposition Time: 07:14 Patient Plan: Discharge Condition: IMPROVED Discharge Instructions (ExitCare): Urinary Tract Infections in Adults, Ovarian Cyst (DC) Additional Instructions: you were treated in the ED today for hx of ovarian cysts and having pelvic discomfort and secondarily having hx of asthma with flare-up as out of breathing treatments but otherwise without any nausea/vomiting/headache/ dizziness/difficulty breathing/chest pain/numbness/tingling/loss of limb function/pain with urination/vaginal bleeding or discharge/travel/prior blood clots/ control/cancer history. Refused sexual disease testing or treatment at this time. You were otherwise breathing easily, talking easily, good strength /sensation, walking easily, clear lungs, no abdomen tenderness, you refused pelvic exam and cautioned for complications but you stated will followup gynecology/primary care clinic 1-2 days, no fever temp 98.5, stable heart rate 69, stable breathing rate 16, excellent oxygen level 100% room air, elevated blood pressure 134/84 which we recommend repeat in 2-3 days primary care office to determine further treatment, you have blood tests no infection count 4, stable blood level hemoglobin 11/platelets 308, stable chemistry, lipase negative 96, urine test mild sign of infection, urine test negative, radiology pelvic ultrasound both ovaries normal flow/right ovary cyst 1.9x2.1x1.2cm/no significant free fluid, toradol, duoneb, prednisone, saline, observation done in the ED with improvement, refused chest radiology imaging, counselled to monitor symptoms and thus discharged home. 1. Recommend prednisone as directed for asthma prevention. 2. Recommend albuterol inhaler as directed for breathing relief. 3. recommend macrobid as directed for urinary infection control. 4. Recommend follow-up primary care 2-3 days to review symptoms, referral to pulmonary clinic and gynecology clinic to review your symptoms/review ultrasound findings of 1.9 x 2.1 x 1.2cm to ensure no complications/cancer development, referral to gastroenterology clinic for urobilinogen in urine to ensure further care, referral to urology for ketones in urine to ensure further care. 5. If any worsening pain, fever, chills, nausea , vomiting, difficulty breathing, numbness, loss of limb function, pain with urination or any medical condition then return to the ED. Prescriptions: Albuterol HFA [Ventolin HFA 90 mcg/actuation (8 g)] 1 puff IH Q6 PRN 5 Days #1 ea PRN Reason: Wheezing Nitrofurantoin Macrocrystals [Macrobid] 100 mg PO Q12 7 Days #14 cap predniSONE [Prednisone] 20 mg PO DAILY 5 Days #5 tab Forms: [employer] [facility] (Hebrew)
[2017-10-23 03:09] LABS: BASO # 0.01 K/mm3 (0.0-2.0); BASO % 0.2 % (0.0-3.0); EOS # 0.1 (0.0-0.7); EOS % 1.8 % (1.5-5.0); GRAN # 2.18 (1.4-6.5); GRAN % 44.4 % (50.0-68.0); HEMOGLOBIN 11.6 g/dL (12.0-16.0); LYMPH # 2.3 (1.2-3.4); LYMPH % 47.5 % (22.0-35.0); MEAN CELL VOLUME 84.5 fl (80.0-105.0); MEAN CORPUSCULAR HEMOGLOBIN 26.4 pg (25.0-35.0); MEAN CORPUSCULAR HGB CONC 31.3 g/dl (31.0-37.0); MEAN PLATELET VOLUME 9.6 fl (7.0-11.0); MONO # 0.3 (0.1-0.6); MONO % 6.1 % (1.0-6.0); RBC 4.39 10^6/uL (3.5-6.1); RED CELL DISTRIBUTION WIDTH 13.6 % (11.5-14.5); WHITE BLOOD COUNT 4.9 10^3/ul (4.5-11.0)
[2017-10-23 03:11] LABS: URINE BILIRUBIN NEGATIVE (NEGATIVE); URINE BLOOD NEGATIVE (NEGATIVE); URINE GLUCOSE (UA) NEGATIVE (NEGATIVE); URINE LEUKOCYTE ESTERASE SMALL Leu/uL (NEGATIVE); URINE PROTEIN NEGATIVE mg/dL (<30 mg/dL)
[2017-10-23 03:14] LABS: URINE APPEARANCE SL CLOUDY (CLEAR); URINE COLOR YELLOW (YELLOW)
[2017-10-23 03:16] LABS: ALB/GLOB RATIO 1.2 (1.1-1.8); ALBUMIN 3.7 g/dL (3.0-4.8); ALT/SGPT 26 U/L (7-56); AST/SGOT 23 U/L (14-36); BLOOD UREA NITROGEN 11 mg/dL (7-21); GFR AFRICAN-AMERICAN > 60; GFR NON-AFRICAN AMERICAN > 60; INR 1.06 (0.93-1.08); LIPASE 96 U/L (23-300); PARTIAL THROMBOPLASTIN TIME 29.6 Seconds (25.1-36.5); PROTHROMBIN TIME 12.1 SECONDS (9.4-12.5)
[2017-10-23 03:22] LABS: URINE BACTERIA SMALL (NEG); URINE RBC 0 - 2 /hpf (0-2)
--- NOTE | 2017-10-23 05:34 | US ---
EXAM: US Pelvis Complete, Transabdominal US Pelvis, Transvaginal CLINICAL HISTORY: 22 years old, female; Pain; Pelvic pain; Additional info: 22yof, with ovarian cysts, pelvic pain TECHNIQUE: Real-time transabdominal and transvaginal pelvic ultrasound (complete) with image documentation. Transvaginal imaging was used for better evaluation of the endometrium and adnexa. COMPARISON: US - PELVIS ULTRASOUND 2016-08-16 15:52 FINDINGS: Uterus/cervix: Uterus measures 3.9 x 7.2 x 3.1 cm in size. No myometrial mass. Endometrium: 0.2 cm in thickness. Right ovary: 4.2 x 1.9 x 4.4 cm in size. 1.9 x 2.1 x 1.2 cm anechoic lesion. Normal flow. Left ovary: 3.2 x 2.9 x 2.9 cm in size. No mass. Normal flow. Free fluid: No significant free fluid. Bladder: Unremarkable as visualized. IMPRESSION: 1. RIGHT ovarian cyst.
[2017-10-23 07:26] VITALS: BP 144/80; PULSE 78; TEMP 98.4; O2SAT 98
== END 2017-10-23 07:25 | disposition home or self-care (01) ==
LOC: ED 01:49
DX: N39.0 Urinary tract infection, site not specified (principal); N83.201 Unspecified ovarian cyst, right side
CPT/HCPCS: 76830; 80053; 81001; 83690; 83735; 85025; 85610; 85730; 87086; 96374; 99284; J1885; J7040

== ENCOUNTER 2018-02-04 21:13 | Emergency (ER) | payer SELFPAY ==
[2018-02-04 21:14] VITALS: BMI 34.3
[2018-02-04 21:27] VITALS: PULSE 85; RESP 19
--- NOTE | 2018-02-04 22:32 | ED PDOC ---
Arrival/HPI <Zo,Jj - Last Filed: 02/04/18 23:08> - General Historian: Patient <Roseline Pena - Last Filed: 02/05/18 00:24> - General Chief Complaint: Lower Extremity Problem/Injury Time Seen by Provider: 02/04/18 21:45 - History of Present Illness Narrative History of Present Illness (Text): 02/04/18 22:27 22-year-old female presents today with right ankle and foot pain status post injury. Patient states she twisted her ankle going down the steps injuring the foot and ankle. Patient states the majority of the pain is over the dorsal aspect of the foot and the lateral aspect of the ankle. She denies numbness weakness or tingling in the extremities. Patient states she has pain with ambulation and has to ambulate on her tip toes. No medications have been taken for pain at home. Patient states incident occurred around 5:00 today. She denies hitting her head. Denies headaches dizziness or weakness. She denies chest pain or shortness of breath. Denies abdominal pain. Patient denies back pain. No other complaints (Roseline Pena) Past Medical History - Provider Review Nursing Documentation Reviewed: Yes - Travel History Have you recently traveled outside [place] w/in the past 3 mons?: No - Infectious Disease Hx of Infectious Diseases: None - Cardiac Hx Cardiac Disorders: No - Pulmonary Hx Respiratory Disorders: Yes Hx Asthma: Yes - Neurological Hx Neurological Disorder: No - HEENT Hx HEENT Disorder: No - Renal Hx Renal Disorder: No - Endocrine/Metabolic Hx Endocrine Disorders: No - Hematological/Oncological Hx Blood Disorders: No - Integumentary Hx Dermatological Disorder: No - Musculoskeletal/Rheumatological Hx Musculoskeletal Disorders: Yes Hx Falls: Yes (Syncopal Episode) - Gastrointestinal Hx Gastrointestinal Disorders: No - Genitourinary/Gynecological Hx Genitourinary Disorders: Yes Other/Comment: OVARIAN CYSTS - Psychiatric Hx Psychophysiologic Disorder: No Hx Substance Use: No - Anesthesia Hx Anesthesia: No Hx Anesthesia Reactions: No Hx Malignant Hyperthermia: No <Roseline Pena - Last Filed: 02/05/18 00:24> Family/Social History - Physician Review Nursing Documentation Reviewed: Yes Family/Social History: Unknown Family HX Smoking Status: Never Smoked Hx Alcohol Use: No Hx Substance Use: No <Roseline Pena - Last Filed: 02/05/18 00:24> Allergies/Home Meds <Zo,Jj - Last Filed: 02/04/18 23:08> <Roseline Pena - Last Filed: 02/05/18 00:24> Allergies/Adverse Reactions: Allergies shrimp Allergy (Verified 02/04/18 21:28) ANAPHYLAXIS Review of Systems - Review of Systems Constitutional: absent: Fatigue, Fevers Respiratory: absent: SOB, Cough Cardiovascular: absent: Chest Pain, Palpitations Gastrointestinal: absent: Abdominal Pain, Nausea, Vomiting Musculoskeletal: Arthralgias. absent: Back Pain, Neck Pain Skin: absent: Rash, Pruritis Neurological: absent: Headache, Dizziness Psychiatric: absent: Anxiety, Depression <Roseline Pena - Last Filed: 02/05/18 00:24> Physical Exam Vital Signs Reviewed: Yes Temperature: Afebrile Blood Pressure: Normal Pulse: Regular Respiratory Rate: Normal Appearance: Positive for: Well-Appearing, Non-Toxic, Comfortable Pain Distress: None Mental Status: Positive for: Alert and Oriented X 3 - Systems Exam Head: Present: Atraumatic Mouth: Present: Moist Mucous Membranes Neck: Present: Normal Range of Motion Respiratory/Chest: Present: Clear to Auscultation, Good Air Exchange. No: Respiratory Distress, Accessory Muscle Use Cardiovascular: Present: Regular Rate and Rhythm, Normal S1, S2. No: Murmurs Abdomen: No: Tenderness, Distention, Rebound, Guarding Back: Present: Normal Inspection Upper Extremity: Present: Normal ROM Lower Extremity: Present: NORMAL PULSES, Tenderness (right foot/ankle; + ttp over lateral malleolus; + edema noted over lateral malleolus; + ttp over entire dorsal foot; no erythema; sensation and distal pulses intact. cap refill < 2. ) , Swelling, Neurovascularly Intact, Capillary Refill < 2 s. No: CALF TENDERNESS , Normal ROM, Erythema, Deformity, Temperature Abnormalties Neurological: Present: GCS=15, Speech Normal Skin: Present: Warm, Dry, Normal Color. No: Rashes Psychiatric: Present: Alert, Oriented x 3 <Roseline Pena - Last Filed: 02/05/18 00:24> Vital Signs Temp Pulse Resp BP Pulse Ox 02/04/18 23:20 98.2 F 85 19 129/53 L 99 02/04/18 21:26 100 08/26/18 21:21 98.8 F 85 19 130/80 99 Medical Decision Making <Jj Pathak - Last Filed: 02/04/18 23:08> <Roseline Pena - Last Filed: 02/05/18 00:24> ED Course and Treatment: 02/04/18 22:34 Patient nontoxic well-appearing in no distress with stable vital signs X-rays of the right ankle: ? chip fx off talus xray of the right foot: motrin po Patient placed in short leg posterior splint crutches given for ambulation. I discussed all results in depth with the patient advised to followup with the orthopedist within the next 2 days. Advised return if symptoms worsen persist or new symptoms develop Patient verbalizes understanding of discharge instructions and need for immediate followup. all aspects of this case were discussed the attending of record. Impression: fracture, foot, ankle pain Motrin every 6 hours as needed for pain Rest, ice, compression, elevation Use crutches for ambulation Followup with the orthopedist within the next 2 days Followup with primary care physician within the next 2 days Return if symptoms worsen persist or if new symptoms develop (Roseline Pena) - RAD Interpretation Radiology Orders: 02/04/18 22:01 ANKLE RIGHT 3 VIEWS ROUTINE [RAD] Stat FOOT RIGHT 3 VIEWS ROUTINE [RAD] Stat - Medication Orders Current Medication Orders: Discontinued Medications Ibuprofen (Motrin Tab) 600 mg PO STAT STA Stop: 02/04/18 22:27 Last Admin: 02/04/18 22:28 Dose: 600 mg MAR Pain/Vitals Document 02/04/18 22:28 GMI (Rec: 02/04/18 22:29 GMI [id number]) Pain Reassessment Is This A Pain ReAssessment? Yes Sleep Is patient sleeping during reassessment? No Presence of Pain Presence of Pain Yes Pain Scale Used Pain Scale Used Numeric Location Upper or Lower Lower Pain Location Body Site Foot Description Sharp Intensity 7 Scale Used Numeric Pain Behavior Facial Grimacing Aggravating Factors Walking Alleviating Factors Medication Procedures - Splinting Location: right foot/ankle Hand-Made Type: fiberglass Splint: short leg posterior splint Pre-Proc Neuro Vasc Exam: normal Post-Proc Neuro Vasc Exam: normal <Roseline Pena - Last Filed: 02/05/18 00:24> - PA / SLOTTER OPERATOR HELPER / Resident Statement / has reviewed & agrees with the documentation as recorded. <ZoJj - Last Filed: 02/04/18 23:08> Disposition/Present on Arrival <ZoJj - Last Filed: 02/04/18 23:08> - Present on Arrival Any Indicators Present on Arrival: No History of DVT/PE: No History of Uncontrolled Diabetes: No Urinary Catheter: No History of Decub. Ulcer: No History Surgical Site Infection Following: None - Disposition Have Diagnosis and Disposition been Completed?: Yes Disposition Time: 22:54 Patient Plan: Discharge <JeanRoseline T - Last Filed: 02/05/18 00:24> - Disposition Diagnosis: Foot fracture, Ankle pain Disposition: HOME/ ROUTINE Condition: GOOD Discharge Instructions (ExitCare): Ankle Fracture, Foot Fracture (DC) Additional Instructions: Motrin every 6 hours as needed for pain Rest, ice, compression, elevation Use crutches for ambulation Followup with the orthopedist within the next 2 days Followup with primary care physician within the next 2 days Return if symptoms worsen persist or if new symptoms develop Prescriptions: Ibuprofen [Motrin] 600 mg PO Q6H PRN #20 tab PRN Reason: pain/fever reduction Referrals: [facility] [place] [Outside] - Follow up with primary [facility] [Outside] - Follow up with primary Don Flaherty MD [Primary Care Provider] - Follow up with primary Ena Chung MD [Staff Provider] - Follow up with primary Mariano Delgadillo DPM [Staff Provider] - Follow up with primary Forms: [employer] (Romansh), WORK NOTE
[2018-02-04 23:21] VITALS: BP 129/53; TEMP 98.2; O2SAT 99
--- NOTE | 2018-02-05 10:17 | RAD ---
Date of service: 02/04/2018 PROCEDURE: Right Ankle Radiographs. HISTORY: ankle pain COMPARISON: None FINDINGS: BONES: There is a well corticated smooth bony fragment inferior to the lateral malleolus adjacent to the talus. This measures 4 mm in length. This is probably a chronic injury. JOINTS: Normal. No osteoarthritis. Ankle mortise maintained. Talar dome intact SOFT TISSUES: Normal. OTHER FINDINGS: None. IMPRESSION: There is a well corticated smooth bony fragment inferior to the lateral malleolus adjacent to the talus. This measures 4 mm in length. This is probably a chronic injury.
--- NOTE | 2018-02-05 10:48 | RAD ---
Date of service: 02/04/2018 PROCEDURE: Right Foot Radiographs. HISTORY: foot pain COMPARISON: None. FINDINGS: BONES: Normal. No fracture. JOINTS: Normal. SOFT TISSUES: Normal. OTHER FINDINGS: None. IMPRESSION: Normal right foot radiographs.
== END 2018-02-04 23:32 | disposition home or self-care (01) ==
LOC: ED 21:13
DX: S92.901A Unspecified fracture of right foot, initial encounter for closed fracture (principal); S82.891A Other fracture of right lower leg, initial encounter for closed fracture; X50.1XXA Overexertion from prolonged static or awkward postures, initial encounter

== ENCOUNTER 2018-04-13 10:04 | Emergency (ER) | payer MEDICAID ==
[2018-04-13 10:05] VITALS: BMI 34.3
--- NOTE | 2018-04-13 10:54 | ED PDOC ---
Arrival/HPI - General Chief Complaint: Lower Extremity Problem/Injury Time Seen by Provider: 04/13/18 10:47 Historian: Patient - History of Present Illness Narrative History of Present Illness (Text): 04/13/18 10:51 22 y/o female, pmh including rt. ankle fracture as chronic, nkda, c/o rt. ankle injury and pain x 2 hours at work today. Pt. stated that she rt. inversion ankle injury today at work about couple hours ago, been having pain, no numbness or tingling, able to walk and bear weight, no numbness or tingling, no other medical or psychological complaints. Past Medical History - Provider Review Nursing Documentation Reviewed: Yes - Infectious Disease Hx of Infectious Diseases: None - Cardiac Hx Cardiac Disorders: No - Pulmonary Hx Respiratory Disorders: Yes Hx Asthma: Yes - Neurological Hx Neurological Disorder: No - HEENT Hx HEENT Disorder: No - Renal Hx Renal Disorder: No - Endocrine/Metabolic Hx Endocrine Disorders: No - Hematological/Oncological Hx Blood Disorders: No - Integumentary Hx Dermatological Disorder: No - Musculoskeletal/Rheumatological Hx Musculoskeletal Disorders: Yes Hx Falls: Yes (Syncopal Episode) - Gastrointestinal Hx Gastrointestinal Disorders: No - Genitourinary/Gynecological Hx Genitourinary Disorders: Yes Other/Comment: OVARIAN CYSTS - Psychiatric Hx Psychophysiologic Disorder: No Hx Substance Use: No - Anesthesia Hx Anesthesia: No Hx Anesthesia Reactions: No Hx Malignant Hyperthermia: No Family/Social History - Physician Review Nursing Documentation Reviewed: Yes Family/Social History: Unknown Family HX Smoking Status: Never Smoked Hx Alcohol Use: No Hx Substance Use: No Allergies/Home Meds Allergies/Adverse Reactions: Allergies shrimp Allergy (Verified 02/04/18 21:28) ANAPHYLAXIS Review of Systems - Review of Systems Constitutional: absent: Fatigue, Fevers Eyes: absent: Vision Changes ENT: absent: Hearing Changes, Rhinorrhea Respiratory: absent: SOB, Cough Cardiovascular: absent: Chest Pain Gastrointestinal: absent: Abdominal Pain, Nausea, Vomiting Musculoskeletal: Arthralgias. absent: Back Pain, Neck Pain, Joint Swelling, Myalgias Skin: absent: Rash, Pruritis, Skin Lesions Neurological: absent: Headache, Dizziness Psychiatric: absent: Anxiety, Depression, Suicidal Ideation Physical Exam Pain Distress: Mild - Systems Exam Head: Present: Atraumatic, Normocephalic Pupils: Present: PERRL Extroacular Muscles: Present: EOMI Conjunctiva: Present: Normal Mouth: Present: Moist Mucous Membranes Neck: Present: Normal Range of Motion Respiratory/Chest: Present: Clear to Auscultation, Good Air Exchange. No: Respiratory Distress, Accessory Muscle Use Cardiovascular: Present: Regular Rate and Rhythm, Normal S1, S2. No: Murmurs Abdomen: No: Tenderness, Distention, Peritoneal Signs Back: Present: Normal Inspection Upper Extremity: Present: Normal Inspection. No: Cyanosis, Edema Lower Extremity: Present: Normal Inspection, Other (Rt. ankle/foot: no obvious tenderness or swelling, no deformity, negative earl and luciano signs, no cellulitis, skin intact, FROM without limitation, sensation intact, motor 5/5, +DPPT pulses, capillary refill< 2 seconds, neurovascular intact. ). No: Edema Neurological: Present: GCS=15, CN II-XII Intact, Speech Normal Skin: Present: Warm, Dry, Normal Color. No: Rashes Psychiatric: Present: Alert, Oriented x 3, Normal Insight, Normal Concentration Medical Decision Making ED Course and Treatment: 04/13/18 10:55 -Pt. complaints of subjective pain, would obtain xray for her 04/13/18 12:39 -Urine hcg is negative -Rt. ankle xray: No acute findings -Rt. foot xray: Normal right foot radiographs. -Pt. feels well, explained about the xray which impression show no acute changes, will splint and crutch her for supportive care since she has pain. -Splint applied by CENTRAL [employer]ERILE SUPPLY TECHNICIAN and neurovascular intact. -Discharge home with posterior splint, crutches, motrin, non-weight bearing if you have pain, follow up with your own pmd and orthopedic within 2 days, return to the ER for any new or worsening signs or symptoms. - RAD Interpretation Radiology Orders: 04/13/18 10:50 ANKLE RIGHT 3 VIEWS ROUTINE [RAD] Stat FOOT RIGHT 3 VIEWS ROUTINE [RAD] Stat Rt. ankle xray: Date of service: 04/13/2018 PROCEDURE: Right Ankle Radiographs. HISTORY: rt. ankle injury, h/o fractgure COMPARISON: 02/04/2018 FINDINGS: BONES: Normal. No fracture. Small well corticated bony fragment inferior to the lateral malleolus. This is unchanged JOINTS: Normal. No osteoarthritis. Ankle mortise maintained. Talar dome intact SOFT TISSUES: Normal. OTHER FINDINGS: None. IMPRESSION: No acute findings Rt. foot xray: Date of service: 04/13/2018 PROCEDURE: Right Foot Radiographs. HISTORY: rt. ankle injury, h/o fracture COMPARISON: None. FINDINGS: BONES: Normal. No fracture. JOINTS: Normal. SOFT TISSUES: Normal. OTHER FINDINGS: None. IMPRESSION: Normal right foot radiographs. Talcer: Radiologist - PA / IMAGE CONSULTANT / Resident Statement / has reviewed & agrees with the documentation as recorded. Disposition/Present on Arrival - Present on Arrival Any Indicators Present on Arrival: No History of DVT/PE: No History of Uncontrolled Diabetes: No Urinary Catheter: No History of Decub. Ulcer: No History Surgical Site Infection Following: None - Disposition Have Diagnosis and Disposition been Completed?: Yes Diagnosis: Arthralgia Disposition: HOME/ ROUTINE Disposition Time: 12:43 Patient Plan: Discharge Patient Problems: Current Active Problems Problem Status Onset Arthralgia Acute Condition: IMPROVED Additional Instructions: -Discharge home with posterior splint, crutches, motrin, non-weight bearing if you have pain, follow up with your own pmd and orthopedic within 2 days, return to the ER for any new or worsening signs or symptoms. Prescriptions: Ibuprofen [Motrin] 600 mg PO QID PRN #30 tab PRN Reason: Other Referrals: Ena Chung MD [Staff Provider] - Follow up with primary [facility] [Outside] - Follow up with primary Forms: [employer] (Thai), WORK NOTE
--- NOTE | 2018-04-13 12:39 | RAD ---
Date of service: 04/13/2018 PROCEDURE: Right Ankle Radiographs. HISTORY: rt. ankle injury, h/o fractgure COMPARISON: 02/04/2018 FINDINGS: BONES: Normal. No fracture. Small well corticated bony fragment inferior to the lateral malleolus. This is unchanged JOINTS: Normal. No osteoarthritis. Ankle mortise maintained. Talar dome intact SOFT TISSUES: Normal. OTHER FINDINGS: None. IMPRESSION: No acute findings
--- NOTE | 2018-04-13 12:40 | RAD ---
Date of service: 04/13/2018 PROCEDURE: Right Foot Radiographs. HISTORY: rt. ankle injury, h/o fracture COMPARISON: None. FINDINGS: BONES: Normal. No fracture. JOINTS: Normal. SOFT TISSUES: Normal. OTHER FINDINGS: None. IMPRESSION: Normal right foot radiographs.
[2018-04-13 12:44] VITALS: TEMP 98.2
[2018-04-13 13:31] VITALS: BP 116/78; PULSE 72; RESP 16; O2SAT 98
== END 2018-04-13 13:25 | disposition home or self-care (01) ==
LOC: ED 10:04
DX: M25.571 Pain in right ankle and joints of right foot (principal)

== ENCOUNTER 2018-04-30 09:15 | Emergency (ER) | payer MEDICAID ==
[2018-04-30 09:16] VITALS: BMI 34.3
[2018-04-30 09:26] VITALS: RESP 18; TEMP 98
[2018-04-30] MEDS ORDERED: Alum-Mag Hydrox-Simethicone Susp (30 mL) PO STA (09:41)
--- NOTE | 2018-04-30 09:57 | ED PDOC ---
Arrival/HPI - General Chief Complaint: Chest Pain Time Seen by Provider: 04/30/18 09:38 Historian: Patient - History of Present Illness Narrative History of Present Illness (Text): 04/30/18 10:03 A 22 year old female, with no significant past medical history, presents to the emergency department complaining of non-radiating mid-chest pain starting yesterday and right ankle pain/swelling. Patient reports chest pain worsens with movement/breathing. Notes also having right ankle pain, to which she had twisted some time long ago, and recently twisted it again. Patient denies any fever, cough, shortness of breath, or any other complaints at this time. PMD: Dr. Galloway Past Medical History - Provider Review Nursing Documentation Reviewed: Yes - Infectious Disease Hx of Infectious Diseases: None - Cardiac Hx Cardiac Disorders: No - Pulmonary Hx Respiratory Disorders: Yes Hx Asthma: Yes - Neurological Hx Neurological Disorder: No - HEENT Hx HEENT Disorder: No - Renal Hx Renal Disorder: No - Endocrine/Metabolic Hx Endocrine Disorders: No - Hematological/Oncological Hx Blood Disorders: No - Integumentary Hx Dermatological Disorder: No - Musculoskeletal/Rheumatological Hx Musculoskeletal Disorders: Yes Hx Falls: Yes (Syncopal Episode) - Gastrointestinal Hx Gastrointestinal Disorders: No - Genitourinary/Gynecological Hx Genitourinary Disorders: Yes Other/Comment: OVARIAN CYSTS - Psychiatric Hx Psychophysiologic Disorder: No Hx Substance Use: No - Anesthesia Hx Anesthesia: No Hx Anesthesia Reactions: No Hx Malignant Hyperthermia: No Family/Social History - Physician Review Nursing Documentation Reviewed: Yes Family/Social History: No Known Family HX Smoking Status: Never Smoked Hx Alcohol Use: No Hx Substance Use: No Allergies/Home Meds Allergies/Adverse Reactions: Allergies shrimp Allergy (Verified 02/04/18 21:28) ANAPHYLAXIS Review of Systems - Physician Review All systems were reviewed & negative as marked: Yes - Review of Systems Constitutional: absent: Fevers Respiratory: absent: SOB, Cough Cardiovascular: Chest Pain (non-raidating mid-chest region) Musculoskeletal: Other (right ankle pain s/p twisting of anklem according to patient) Physical Exam Vital Signs Reviewed: Yes Vital Signs Temp Pulse Resp BP Pulse Ox 04/30/18 09:25 98.0 F 72 18 117/72 100 Temperature: Afebrile Blood Pressure: Normal Pulse: Regular Respiratory Rate: Normal Appearance: Positive for: Well-Appearing, Non-Toxic, Comfortable Pain Distress: None Mental Status: Positive for: Alert and Oriented X 3 - Systems Exam Head: Present: Atraumatic, Normocephalic Pupils: Present: PERRL Extroacular Muscles: Present: EOMI Conjunctiva: Present: Normal Mouth: Present: Moist Mucous Membranes Neck: Present: Normal Range of Motion Respiratory/Chest: Present: Clear to Auscultation, Good Air Exchange. No: Resp iratory Distress, Accessory Muscle Use Cardiovascular: Present: Regular Rate and Rhythm, Normal S1, S2. No: Murmurs Abdomen: No: Tenderness, Distention, Peritoneal Signs Back: Present: Normal Inspection Upper Extremity: Present: Normal Inspection. No: Cyanosis, Edema Lower Extremity: Present: Normal Inspection, NORMAL PULSES (distal pusles intact), Normal ROM (full ROM to right ankle.), Tenderness (right lateral aspect of ankle). No: Edema, Swelling (no swelling noted to ankles bilaterally) Neurological: Present: GCS=15, CN II-XII Intact, Speech Normal Skin: Present: Warm, Dry, Normal Color. No: Rashes Psychiatric: Present: Alert, Oriented x 3, Normal Insight, Normal Concentration Medical Decision Making ED Course and Treatment: 04/30/18 10:03 Impression: 22 year old female with non-radiating mid-chest pain and right ankle pain. Physical exam shows tenderness to lateral aspect of right ankle, no swelling to ankles bilaterally, full ROM to right ankle, distal pulses intact; no other acute findings on examination. Plan: -- Chest X-ray -- Right Ankle X-Ray -- Motrin -- Maalox Plus 30 -- Reassess and disposition Prior Visits: Notes and results from previous visits were reviewed. Patient was last seen in the emergency department on 04/13/2018 for right ankle fracture s/p work injury. Patient was discharged home. Progress Notes: 04/30/2018 10:40 Right Ankle X-Ray IMPRESSION: No acute fracture. Dictator: Yayo Davis MD 04/30/2018 10:41 Chest X-ray IMPRESSION: No active disease. Dictator: Yayo Davis MD 04/30/18 11:45 Upon reevaluation, patient states she is feeling better, and cxr is negative. Patient to be discharged. - RAD Interpretation Radiology Orders: 04/30/18 09:39 CHEST TWO VIEWS (PA/LAT) [RAD] Stat ANKLE RIGHT 3 VIEWS ROUTINE [RAD] Stat - Medication Orders Current Medication Orders: Discontinued Medications Al Hydrox/Mg Hydrox/Simethicone (Maalox Plus 30 Ml) 30 ml PO STAT STA Stop: 04/30/18 09:42 Ibuprofen (Motrin Tab) 600 mg PO STAT STA Stop: 04/30/18 09:41 - Scribe Statement The provider has reviewed the documentation as recorded by the Tripp Meraz Provider Scribe Attestation: All medical record entries made by the Scribe were at my direction and personally dictated by me. I have reviewed the chart and agree that the record accurately reflects my personal performance of the history, physical exam, medical decision making, and the department course for this patient. I have also personally directed, reviewed, and agree with the discharge instructions and disposition. Disposition/Present on Arrival - Present on Arrival Any Indicators Present on Arrival: No History of DVT/PE: No History of Uncontrolled Diabetes: No Urinary Catheter: No History of Decub. Ulcer: No History Surgical Site Infection Following: None - Disposition Have Diagnosis and Disposition been Completed?: Yes Diagnosis: Costochondritis, Ankle sprain Disposition: HOME/ ROUTINE Disposition Time: 11:54 Condition: GOOD Discharge Instructions (ExitCare): Ankle Sprain, Costochondritis Prescriptions: Ibuprofen [Motrin] 600 mg PO Q6 5 Days #20 tab Referrals: Don Flaherty MD [Primary Care Provider] - Follow up with primary Forms: [employer] (Malay)
--- NOTE | 2018-04-30 10:44 | RAD ---
Date of service: 04/30/2018 PROCEDURE: Right Ankle Radiographs. HISTORY: ankle pain COMPARISON: 04/13/2018 FINDINGS: BONES: No change from prior study. Well corticated bony fragment inferior to the lateral malleolus. No acute fracture JOINTS: Normal. No osteoarthritis. Ankle mortise maintained. Talar dome intact SOFT TISSUES: Normal. OTHER FINDINGS: None. IMPRESSION: No acute fracture
--- NOTE | 2018-04-30 10:45 | RAD ---
Date of service: 04/30/2018 HISTORY: chest pain COMPARISON: 07/18/2017 TECHNIQUE: Chest PA and lateral FINDINGS: LUNGS: No active pulmonary disease. PLEURA: No significant pleural effusion identified. No pneumothorax apparent. CARDIOVASCULAR: No aortic atherosclerotic calcification present. Normal cardiac size. No pulmonary vascular congestion. OSSEOUS STRUCTURES: No significant abnormalities. VISUALIZED UPPER ABDOMEN: Normal. OTHER FINDINGS: None. IMPRESSION: No active disease.
[2018-04-30 11:56] VITALS: BP 122/76; PULSE 68; O2SAT 99
--- NOTE | 2018-04-30 14:10 | CARD ---
APPROVED REPORT Date of service: 04/30/2018 EKG Measurement Heart [id number] <Conclusion> Normal sinus rhythm Normal ECG
== END 2018-04-30 12:02 | disposition home or self-care (01) ==
LOC: ED 09:15
DX: M94.0 Chondrocostal junction syndrome [Tietze] (principal); S93.401A Sprain of unspecified ligament of right ankle, initial encounter; X50.1XXA Overexertion from prolonged static or awkward postures, initial encounter; Y92.9 Unspecified place or not applicable

== ENCOUNTER 2018-07-06 06:12 | Emergency (ER) | payer MEDICAID ==
[2018-07-06 06:12] VITALS: BMI 34.3
--- NOTE | 2018-07-06 07:20 | ED PDOC ---
Arrival/HPI - General Chief Complaint: Shortness Of Breath Time Seen by Provider: 07/06/18 07:03 Historian: Patient - History of Present Illness Narrative History of Present Illness (Text): 07/06/18 07:20 A 23 year old female, whose past medical history includes asthma, presents to the emergency department complaining of asthma attacks for the past few days. Patient reports pain worsens upon coughing and reports experiencing associated chest tightness and abdominal pain. Patient also notes to having a fever that resolved yesterday and states her LNMP just finished. Patient denies any diarrhea, nausea, vomiting, dysuria, or any other complaints. PMD: Dr. Flaherty Time/Duration: Other (few days) Symptom Onset: Gradual Symptom Course: Unchanged Activities at Onset: Light Context: Home Past Medical History - Provider Review Nursing Documentation Reviewed: Yes - Infectious Disease Hx of Infectious Diseases: None - Cardiac Hx Cardiac Disorders: No - Pulmonary Hx Respiratory Disorders: Yes Hx Asthma: Yes - Neurological Hx Neurological Disorder: No - HEENT Hx HEENT Disorder: No - Renal Hx Renal Disorder: No - Endocrine/Metabolic Hx Endocrine Disorders: No - Hematological/Oncological Hx Blood Disorders: No - Integumentary Hx Dermatological Disorder: No - Musculoskeletal/Rheumatological Hx Musculoskeletal Disorders: Yes Hx Falls: Yes (Syncopal Episode) - Gastrointestinal Hx Gastrointestinal Disorders: No - Genitourinary/Gynecological Hx Genitourinary Disorders: Yes Other/Comment: OVARIAN CYSTS - Psychiatric Hx Psychophysiologic Disorder: No Hx Substance Use: No - Anesthesia Hx Anesthesia: No Hx Anesthesia Reactions: No Hx Malignant Hyperthermia: No Family/Social History - Physician Review Nursing Documentation Reviewed: Yes Family/Social History: No Known Family HX Smoking Status: Never Smoked Hx Alcohol Use: No Hx Substance Use: No Allergies/Home Meds Allergies/Adverse Reactions: Allergies shrimp Allergy (Verified 02/04/18 21:28) ANAPHYLAXIS Review of Systems - Physician Review All systems were reviewed & negative as marked: Yes - Review of Systems Gastrointestinal: absent: Diarrhea, Nausea, Vomiting Physical Exam - Physical Exam Narrative Physical Exam (Text): 07/06/18 07:20 Constitutional: No acute distress. Head: Normocephalic. Atraumatic. Eyes: PERRL. ENT: Moist mucous membranes. Neck: Supple. Cardiovascular: Regular rate. Chest: No tenderness. Respiratory: Clear to auscultation bilaterally. GI: Suprapubic tenderness with no rebound or guarding. Back: No CVA tenderness. Musculoskeletal: No tenderness or swelling of extremities. Skin: No rash. Neurologic: Alert, no focal deficit. Vital Signs Reviewed: Yes Vital Signs Temp Pulse Resp BP Pulse Ox 07/06/18 06:30 18 99 07/06/18 06:22 97.3 F L 71 18 121/66 98 Temperature: Hypothermic Blood Pressure: Normal Pulse: Regular Respiratory Rate: Normal Appearance: Positive for: Non-Toxic Medical Decision Making ED Course and Treatment: 07/06/18 07:20 Impression: 23 year old female presents to the emergency department complaining of asthma attacks. Plan: -- CT of abdomen and pelvis -- Labs -- CBC -- Chest X-ray -- Solumedrol -- Urinalysis -- HCG, urine -- Reassess and disposition Prior Visits: Notes and results from previous visits were reviewed. Progress Notes: 07/06/18 11:04 Procedure: CT of abdomen and pelvis Dictator: Yayo Keita MD Impression: Unremarkable contrast enhanced CT of the abdomen and pelvis. - Scribe Statement The provider has reviewed the documentation as recorded by the Scribe Diamond Daniels All medical record entries made by the Scribe were at my direction and personally dictated by me. I have reviewed the chart and agree that the record accurately reflects my personal performance of the history, physical exam, medical decision making, and the department course for this patient. I have also personally directed, reviewed, and agree with the discharge instructions and disposition. Disposition/Present on Arrival - Present on Arrival Any Indicators Present on Arrival: No History of DVT/PE: No History of Uncontrolled Diabetes: No Urinary Catheter: No History of Decub. Ulcer: No History Surgical Site Infection Following: None - Disposition Have Diagnosis and Disposition been Completed?: Yes Diagnosis: UTI (urinary tract infection) Disposition: HOME/ ROUTINE Disposition Time: 11:03 Patient Plan: Discharge Patient Problems: Current Active Problems Problem Status Onset UTI (urinary tract infection) Acute Condition: STABLE Discharge Instructions (ExitCare): Urinary Tract Infections in Adults Prescriptions: Nitrofurantoin Macrocrystals [Macrobid] 100 mg PO BID #20 cap Referrals: Don Flaherty MD [Primary Care Provider] - Follow up with primary Forms: [employer] (Ukrainian)
[2018-07-06 08:23] LABS: BASO # 0.01 K/mm3 (0.0-2.0); BASO % 0.1 % (0.0-3.0); GRAN # 5.52 (1.4-6.5); GRAN % 58.8 % (50.0-68.0); HEMOGLOBIN 11.5 g/dL (12.0-16.0); LYMPH # 3.2 (1.2-3.4); LYMPH % 33.5 % (22.0-35.0); MEAN CELL VOLUME 84.5 fl (80.0-105.0); MEAN CORPUSCULAR HEMOGLOBIN 26.6 pg (25.0-35.0); MEAN CORPUSCULAR HGB CONC 31.4 g/dl (31.0-37.0); MEAN PLATELET VOLUME 9.8 fl (7.0-11.0); MONO # 0.7 (0.1-0.6); MONO % 7.6 % (1.0-6.0); RBC 4.33 10^6/uL (3.5-6.1); RED CELL DISTRIBUTION WIDTH 13.6 % (11.5-14.5); WHITE BLOOD COUNT 9.4 10^3/uL (4.5-11.0)
[2018-07-06 08:39] LABS: ALB/GLOB RATIO 1.1 (1.1-1.8); ALBUMIN 3.6 g/dL (3.0-4.8); ALT/SGPT 63 U/L (7-56); AST/SGOT 31 U/L (14-36); BLOOD UREA NITROGEN 18 mg/dL (7-21); CALCIUM 8.6 mg/dL (8.4-10.5); GFR NON-AFRICAN AMERICAN > 60; LIPASE 82 U/L (23-300)
[2018-07-06] MEDS ORDERED: Iohexol 350 MG/100 ML VIAL ONE (09:32)
[2018-07-06 09:50] VITALS: O2SAT 100
[2018-07-06 09:54] LABS: URINE BILIRUBIN NEGATIVE (NEGATIVE); URINE BLOOD TRACE-LYSED (NEGATIVE); URINE GLUCOSE (UA) NEGATIVE (NEGATIVE); URINE LEUKOCYTE ESTERASE SMALL Leu/uL (NEGATIVE); URINE PROTEIN NEGATIVE mg/dL (<30 mg/dL); URINE UROBILINOGEN 0.2 E.U./dL (<1 E.U./dL)
[2018-07-06 09:56] LABS: URINE APPEARANCE SL CLOUDY (CLEAR); URINE COLOR YELLOW (YELLOW)
[2018-07-06 09:57] LABS: HCG,QUALITATIVE URINE NEGATIVE (NEGATIVE)
[2018-07-06 10:03] VITALS: RESP 16
[2018-07-06 10:05] LABS: URINE BACTERIA TRACE /hpf; URINE RBC 0 - 2 /hpf (0-2); URINE WBC 25 - 30 /hpf (0-6)
--- NOTE | 2018-07-06 10:56 | CT ---
Date of service: 07/06/2018 PROCEDURE: CT Abdomen and Pelvis with contrast HISTORY: abd pain COMPARISON: 12/26/2016 CT TECHNIQUE: Contrast dose: 100 cc of Omni 350 Radiation dose: Total exam DLP = 1029.99 mGy-cm. This CT exam was performed using one or more of the following dose reduction techniques: Automated exposure control, adjustment of the mA and/or kV according to patient size, and/or use of iterative reconstruction technique. FINDINGS: LOWER THORAX: Unremarkable. LIVER: Unremarkable. No gross lesion or ductal dilatation. GALLBLADDER AND BILE DUCTS: Unremarkable. PANCREAS: Unremarkable. No gross lesion or ductal dilatation. SPLEEN: Unremarkable. ADRENALS: Unremarkable. No mass. KIDNEYS AND URETERS: Unremarkable. No hydronephrosis. No solid mass. VASCULATURE: Unremarkable. No aortic aneurysm. No aortic atherosclerotic calcification or mural plaque present. BOWEL: Unremarkable. No obstruction. No gross mural thickening. Mild constipation. APPENDIX: Normal appendix. PERITONEUM: Unremarkable. No free fluid. No free air. LYMPH NODES: Unremarkable. No enlarged lymph nodes. BLADDER: Unremarkable. REPRODUCTIVE: Bilateral ovarian cysts. There is no fluid in the cul-de-sac BONES: No acute fracture. OTHER FINDINGS: None. IMPRESSION: Unremarkable contrast enhanced CT of the abdomen and pelvis.
[2018-07-06 11:28] VITALS: BP 114/84; PULSE 94; TEMP 97.8
== END 2018-07-06 11:30 | disposition home or self-care (01) ==
LOC: ED 06:12
DX: N39.0 Urinary tract infection, site not specified (principal)
CPT/HCPCS: 74177; 80053; 81001; 81025; 83690; 84703; 85025; 87086; 96374; 99284; J2930; Q9967

== ENCOUNTER 2018-09-25 15:13 | Emergency (ER) | payer MEDICAID ==
[2018-09-25 15:13] VITALS: BMI 34.3
[2018-09-25 16:17] VITALS: RESP 18; TEMP 98; O2SAT 100
--- NOTE | 2018-09-25 17:46 | ED PDOC ---
Arrival/HPI - General Chief Complaint: Upper Extremity Problem/Injury Time Seen by Provider: 09/25/18 16:06 Historian: Patient - History of Present Illness Narrative History of Present Illness (Text): 09/25/18 17:46 23-year-old female presents today with left hand pain. Patient states a week ago she fell injuring her hand was seen at [facility] and was diagnosed with a hand fracture. Patient states she was placed into a splint and was advised to follow-up with the orthopedist for which she did not do. Patient states 3 days after getting the splint put on she got the splint wet and took it off. Patient presents today requesting from a splint to be reapplied. Patient denies numbness weakness or tingling in the extremity. Patient is complaining of pain with range of motion of the thumb and the left second finger. Past Medical History - Provider Review Nursing Documentation Reviewed: Yes - Travel History Have you recently traveled outside [place] w/in the past 3 mons?: No - Infectious Disease Hx of Infectious Diseases: None - Reproductive Menopause: No - Cardiac Hx Cardiac Disorders: No - Pulmonary Hx Respiratory Disorders: Yes Hx Asthma: Yes - Neurological Hx Neurological Disorder: No - HEENT Hx HEENT Disorder: No - Renal Hx Renal Disorder: No - Endocrine/Metabolic Hx Endocrine Disorders: No - Hematological/Oncological Hx Blood Disorders: No - Integumentary Hx Dermatological Disorder: No - Musculoskeletal/Rheumatological Hx Musculoskeletal Disorders: Yes Hx Falls: Yes (Syncopal Episode) - Gastrointestinal Hx Gastrointestinal Disorders: No - Genitourinary/Gynecological Hx Genitourinary Disorders: Yes Other/Comment: OVARIAN CYSTS - Psychiatric Hx Psychophysiologic Disorder: No Hx Substance Use: No - Anesthesia Hx Anesthesia: No Hx Anesthesia Reactions: No Hx Malignant Hyperthermia: No Family/Social History - Physician Review Nursing Documentation Reviewed: Yes Family/Social History: Unknown Family HX Smoking Status: Never Smoked Hx Alcohol Use: No Hx Substance Use: No Allergies/Home Meds Allergies/Adverse Reactions: Allergies shrimp Allergy (Verified 02/04/18 21:28) ANAPHYLAXIS Review of Systems - Review of Systems Constitutional: absent: Fatigue, Fevers Respiratory: absent: SOB, Cough Cardiovascular: absent: Chest Pain, Palpitations Gastrointestinal: absent: Abdominal Pain Musculoskeletal: Arthralgias Skin: absent: Rash, Pruritis Psychiatric: absent: Anxiety, Depression Physical Exam Vital Signs Reviewed: Yes Vital Signs Temp Pulse Resp BP Pulse Ox 09/25/18 16:16 98 F 78 18 125/70 100 Temperature: Afebrile Blood Pressure: Normal Pulse: Regular Respiratory Rate: Normal Appearance: Positive for: Well-Appearing, Non-Toxic, Comfortable Pain Distress: None Mental Status: Positive for: Alert and Oriented X 3 - Systems Exam Head: Present: Atraumatic, Normocephalic Mouth: Present: Moist Mucous Membranes Neck: Present: Normal Range of Motion Respiratory/Chest: Present: Clear to Auscultation, Good Air Exchange. No: Respiratory Distress, Accessory Muscle Use Cardiovascular: Present: Regular Rate and Rhythm, Normal S1, S2. No: Murmurs Back: Present: Normal Inspection Upper Extremity: Present: Normal ROM, NORMAL PULSES, Tenderness (Left hand: There is tenderness over the volar aspect of the hand over the first and second metacarpals. Sensation and distal pulses intact. Cap refill less than 2. There is no wrist tenderness. no snuff box tenderness; full rom of wrist. ), Neurovascularly Intact, Capillary Refill < 2s. No: Cyanosis, Edema, Swelling, Erythema Neurological: Present: GCS=15, Speech Normal Skin: Present: Warm, Dry, Normal Color. No: Rashes Psychiatric: Present: Alert, Oriented x 3 Medical Decision Making ED Course and Treatment: 09/25/18 17:48 Patient nontoxic well-appearing in no distress with stable vital signs X-rays of the left hand: no fracture Patient placed in volar splint and thumb spica splint. I discussed all results with patient advised to followup with the orthopedist/hand specialist for the next 2 days. Return if symptoms worsen persist or new symptoms develop. I advised the patient that although the xrays show no fracture; there is still a possibility for ligamentous or tendon injury the patient must see the orthopedist for further evaluatio Patient was advised that she must follow-up with the orthopedist [facility]. Patient was advised that if she leaves the splint on for a long period of time without follow-up that it can cause further damage. Patient verbalizes understanding of discharge instructions and need for immediate followup. All aspects of this case were discussed the attending of record. Impression: Hand pain Motrin every 6 hours as needed for pain Rest, ice, compression, elevation Followup with the orthopedist/hand specialist within the next 2 days Followup with primary care physician within the next 2 days Return if any other concerning symptoms develop - RAD Interpretation Radiology Orders: 09/25/18 17:21 HAND LEFT 3 VIEWS ROUTINE [RAD] Stat Procedures - Splinting Location: left hand/wrist Hand-Made Type: fiberglass Splint: volar (volar and thumb spica splint applied.) Pre-Proc Neuro Vasc Exam: normal Post-Proc Neuro Vasc Exam: normal Disposition/Present on Arrival - Present on Arrival Any Indicators Present on Arrival: No History of DVT/PE: No History of Uncontrolled Diabetes: No Urinary Catheter: No History of Decub. Ulcer: No History Surgical Site Infection Following: None - Disposition Have Diagnosis and Disposition been Completed?: Yes Diagnosis: Hand pain Disposition: HOME/ ROUTINE Disposition Time: 17:48 Patient Plan: Discharge Condition: GOOD Discharge Instructions (ExitCare): Hand Pain (DC) Additional Instructions: Motrin every 6 hours as needed for pain Rest, ice, compression, elevation Followup with the orthopedist within the next 2 days Followup with primary care physician within the next 2 days Return if any other concerning symptoms develop Referrals: Yayo Segovia DO [Staff Provider] - Follow up with primary Patria Wyatt MD [Staff Provider] - Follow up with primary Tomi Alex MD [Staff Provider] - Follow up with primary [facility] [Outside] - Follow up with primary [facility] [Outside] - Follow up with primary [facility] [place] [Outside] - Follow up with primary Forms: [employer] (French), WORK NOTE
[2018-09-25 19:02] VITALS: BP 120/71; PULSE 75
--- NOTE | 2018-09-26 10:12 | RAD ---
PROCEDURE: Left Hand Radiographs. HISTORY: fall 1 week ago; hx of fx, COMPARISON: None. TECHNIQUE: Four views obtained. FINDINGS: BONES: Normal. No fracture. JOINTS: Normal. No osteoarthritic changes. SOFT TISSUES: Normal. OTHER FINDINGS: None. IMPRESSION: Normal left hand radiographs.
== END 2018-09-25 19:02 | disposition home or self-care (01) ==
LOC: ED 15:13
DX: M79.642 Pain in left hand (principal)

== ENCOUNTER 2018-10-16 08:25 | Emergency (ER) | payer MEDICAID ==
[2018-10-16 08:25] VITALS: BMI 34.3
[2018-10-16 08:43] VITALS: O2SAT 99
--- NOTE | 2018-10-16 08:51 | ED PDOC ---
Arrival/HPI - General Historian: Patient - History of Present Illness Narrative History of Present Illness (Text): 10/16/18 09:03 Patient is a 23 yo female with asthma who presents with lip swelling. Patient states that she noticed tiny bumps on her lips a few days ago. Last night, both her top and bottom lips started swelling. Patient placed a cold compress but this did not relieve symptoms. This morning when patient awoke, she reports her lips were significantly more swollen and with some numbness of the bottom lip. She denies any tongue swelling or trouble breathing or talking. She denies eating any new/unusual foods. She denies putting anything new on her lips/skin. She has just been using vasoline for dry lips. Regarding recent medication changes, she reports her rescue inhaler being changed last week and the last time she used it was 2 days ago. Patient denies anything like this happening before. Time/Duration: 24 hours Symptom Onset: Gradual Symptom Course: Worsening Activities at Onset: Rest <Joann Barajas - Last Filed: 10/16/18 10:21> <Nate Peña - Last Filed: 10/16/18 10:23> - General Chief Complaint: ENT Problem Time Seen by Provider: 10/16/18 08:29 Past Medical History - Provider Review Primary Care Provider: Don Flaherty - Infectious Disease Hx of Infectious Diseases: None - Reproductive Menopause: No - Cardiac Hx Cardiac Disorders: No - Pulmonary Hx Respiratory Disorders: Yes Hx Asthma: Yes - Neurological Hx Neurological Disorder: No - HEENT Hx HEENT Disorder: No - Renal Hx Renal Disorder: No - Endocrine/Metabolic Hx Endocrine Disorders: No - Hematological/Oncological Hx Blood Disorders: No - Integumentary Hx Dermatological Disorder: No - Musculoskeletal/Rheumatological Hx Musculoskeletal Disorders: Yes Hx Falls: Yes (Syncopal Episode) - Gastrointestinal Hx Gastrointestinal Disorders: No - Genitourinary/Gynecological Hx Genitourinary Disorders: Yes Other/Comment: OVARIAN CYSTS - Psychiatric Hx Psychophysiologic Disorder: No Hx Substance Use: No - Anesthesia Hx Anesthesia: No Hx Anesthesia Reactions: No Hx Malignant Hyperthermia: No <Joann Barajas - Last Filed: 10/16/18 10:21> Family/Social History Family/Social History: Unknown Family HX Smoking Status: Never Smoked Hx Alcohol Use: No Hx Substance Use: Yes Substance used: Marijuana- last used 3 months ago Route: Smoking/Inhalation <Joann Barajas - Last Filed: 10/16/18 10:21> Allergies/Home Meds <Joann Barajas - Last Filed: 10/16/18 10:21> <BosNate davis - Last Filed: 10/16/18 10:23> Allergies/Adverse Reactions: Allergies shrimp Allergy (Verified 02/04/18 21:28) ANAPHYLAXIS Review of Systems - Review of Systems Constitutional: absent: Fevers Eyes: absent: Vision Changes ENT: absent: Hearing Changes, Sore Throat Respiratory: absent: SOB, Cough Cardiovascular: absent: Chest Pain, Palpitations Skin: absent: Rash, Pruritis, Skin Lesions Neurological: absent: Headache Hemo/Lymphatic: absent: Adenopathy <Joann Barajas - Last Filed: 10/16/18 10:21> Physical Exam Vital Signs Reviewed: Yes Vital Signs Temp Pulse Resp BP Pulse Ox 10/16/18 08:40 98 F 86 18 105/83 99 Temperature: Afebrile Blood Pressure: Normal Pulse: Regular Respiratory Rate: Normal Appearance: Positive for: Non-Toxic, Comfortable Pain Distress: None Mental Status: Positive for: Alert and Oriented X 3 - Systems Exam Head: Present: Atraumatic Extroacular Muscles: Present: EOMI Conjunctiva: Present: Normal Mouth: Present: Moist Mucous Membranes, Normal Tounge, Other (no open lesions or bleeding). No: Normal Lips (symmetric edema- bottom>top) Pharnyx: Present: Normal. No: ERYTHEMA, EXUDATE Nose (External): Present: Atraumatic Nose (Internal): No: Edematous Neck: Present: Normal Range of Motion. No: Lymphadenopathy Respiratory/Chest: Present: Clear to Auscultation. No: Accessory Muscle Use, Wheezes Cardiovascular: Present: Regular Rate and Rhythm Lower Extremity: No: Edema Neurological: Present: GCS=15, CN II-XII Intact, Speech Normal Skin: Present: Warm, Dry, Normal Color. No: Rashes Lymphatic: No: Cervical Adenopathy Psychiatric: Present: Alert, Oriented x 3, Normal Insight, Normal Concentration <Joann Barajas - Last Filed: 10/16/18 10:21> Vital Signs Temp Pulse Resp BP Pulse Ox 10/16/18 08:40 98 F 86 18 105/83 99 <Nate Peña - Last Filed: 10/16/18 10:23> Medical Decision Making Re-evaluation Time: 10:00 Reassessment Condition: Re-examined, Improved - Medication Orders Current Medication Orders: 10/16/18 09:26 Benadryl 50 mg IV Solu-Medrol 125 mg IV Pepcid 20 mg IV NS 1L <Joann Barajas - Last Filed: 10/16/18 10:21> - Medication Orders Current Medication Orders: Discontinued Medications Diphenhydramine HCl (Benadryl) 50 mg IVP STAT STA Stop: 10/16/18 09:11 Last Admin: 10/16/18 09:24 Dose: 50 mg IVP Administration Document 10/16/18 09:24 CD (Rec: 10/16/18 09:24 CD [facility] [place]-21) Charges for Administration # of IVP Administrations 1 Famotidine (Pepcid) 20 mg IVP STAT STA Stop: 10/16/18 09:11 Last Admin: 10/16/18 09:24 Dose: 20 mg IVP Administration Document 10/16/18 09:24 CD (Rec: 10/16/18 09:24 CD [facility] [place]-21) Charges for Administration # of IVP Administrations 1 Sodium Chloride (Sodium Chloride 0.9%) 1,000 mls @ 999 mls/hr IV .Q1H1M STA Stop: 10/16/18 10:10 Last Admin: 10/16/18 09:24 Dose: 999 mls/hr eMAR Start Stop Document 10/16/18 09:24 CD (Rec: 10/16/18 09:24 CD [facility] [place]-21) Intravenous Solution Start Date 10/16/18 Start Time 09:24 End Date 10/16/18 End time 10:25 Total Infusion Time 61 Methylprednisolone (Solu-Medrol) 125 mg IVP STAT STA Stop: 10/16/18 09:11 Last Admin: 10/16/18 09:24 Dose: 125 mg IVP Administration Document 10/16/18 09:24 CD (Rec: 10/16/18 09:24 CD [facility] [place]-21) Charges for Administration # of IVP Administrations 1 <Nate Peña - Last Filed: 10/16/18 10:23> Disposition/Present on Arrival - Present on Arrival Any Indicators Present on Arrival: No History of DVT/PE: No History of Uncontrolled Diabetes: No Urinary Catheter: No History of Decub. Ulcer: No History Surgical Site Infection Following: None - Disposition Have Diagnosis and Disposition been Completed?: Yes Disposition Time: 10:20 Patient Plan: Discharge <Joann Barajas - Last Filed: 10/16/18 10:21> <Nate Peña - Last Filed: 10/16/18 10:23> - Disposition Diagnosis: Lip edema Disposition: HOME/ ROUTINE Patient Problems: Current Active Problems Problem Status Onset Allergic reaction Acute Lip edema Acute Condition: IMPROVED Print Language: JORDANIAN Additional Instructions: Keep your appointment with PMD Dr. Flaherty tomorrow Monday10/17/18. You may take Benadryl 50 mg by mouth every 6 hours as needed for symptoms. Prescriptions: Epinephrine HCl [Epipen Auto-Injector] 0 mg IM ONCE #1 unit Methylprednisolone [Medrol Dose Pack (21 tabs)] 4 mg PO DAILY #21 mg Referrals: Don Flaherty MD [Primary Care Provider] - Follow up with primary Forms: [employer] (Vietnamese)
[2018-10-16] MEDS ORDERED: DiphenhydrAMINE 50 mg/ml Inj IVP STA (09:10)
[2018-10-16] MEDS ORDERED: Sodium Chloride 0.9% 1,000 ML IV STA (09:10)
[2018-10-16 10:30] VITALS: BP 109/79; PULSE 81; RESP 17; TEMP 99.1
== END 2018-10-16 11:55 | disposition home or self-care (01) ==
LOC: ED 08:25
DX: R60.0 Localized edema (principal)
CPT/HCPCS: 96361; 96374; 96375; 99283; J1200; J2930; J7030